=== PATIENT | female | born 1945 | race Caucasian/White ===

== ENCOUNTER 2022-12-08 17:40 | Inpatient (IN) | payer OTHER, MEDICARE ==
[~2022-12-08] VITALS: Ht 167.6 cm; Wt 108.9 kg
[2022-12-08 17:46] VITALS: BP_SYST 108
--- NOTE | 2022-12-08 18:38 | NUR ---
Placed in room 08 . Placed on personnel monitor, blood pressure machine and pulse oximeter. To gown for exam. Side rails up. Report given to EUGENE ASH.
--- NOTE | 2022-12-08 19:25 | NUR ---
REPORT GIVE TO KELSEA RN, PT STABLE, VSS
[2022-12-08] MEDS ORDERED: dilTIAZem HCL IVP 5 MG/ML VIAL IVP ONE ×2 (19:30→20:30)
--- NOTE | 2022-12-08 19:36 | NUR ---
COVID SWAB OBTAINED AND SENT TO LAB.
[2022-12-08 20:21] LABS: ANION GAP 5 (5-15); CALCIUM 8.5 mg/dL (8.4-11.0); CHLORIDE 101 mmol/L (98-107); CREATININE 1.63 mg/dL (0.55-1.30); GLUCOSE 343 mg/dL (70-99); HEMATOCRIT 45.6 % (36-48); HEMOGLOBIN 14.1 g/dL (12.0-16.0); MEAN CORPUSCULAR HEMOGLOBIN 29 pg (27-31); MEAN CORPUSCULAR HGB CONC 31 % (32-36); MEAN CORPUSCULAR VOLUME 92 fL (79.0-98.0); PLATELET COUNT (AUTO) 166 K/uL (130-430); RED BLOOD CELL COUNT(AUTO) 4.95 MIL/uL (4.2-6.2); RED CELL DISTRIBUTION WIDTH 17.2 % (9.0-15.0); UREA NITROGEN, BLOOD 74 mg/dL (8-21)
[2022-12-08 20:27] LABS: WHITE BLOOD COUNT (AUTO) 26.4 K/uL (4.8-10.8)
[2022-12-08 20:34] LABS: ALANINE AMINOTRANSFERASE 135 U/L (12-78); ASPARTATE AMINOTRANSFERASE 77 U/L (10-37); TOTAL BILIRUBIN 0.5 mg/dL (0.0-1.0)
[2022-12-08 20:39] LABS: BAND % (MANUAL) 0 % (0-6); BASOPHILS % (MANUAL) 0 % (0-2); EOSINOPHILS % (MANUAL) 0 % (0-7); LYMPHOCYTES % (MANUAL) 6 % (20-46); MONOCYTES % (MANUAL) 5 % (0-11)
[2022-12-08 20:48] LABS: INR 1.2 (0.8-1.2); PROTHROMBIN TIME 12.4 SECS (9.5-12.5)
--- NOTE | 2022-12-08 20:50 | NUR ---
Cardizem 10 mg given IVP as ordered; pt connected to monitor.
[2022-12-08] MEDS ORDERED: cefTRIAXone 1 GM in D5W 50 ML IV ONE (21:15)
--- NOTE | 2022-12-08 21:15 | NUR ---
MRSA SAMPLE COLLECTED AND SENT TO LAB
[2022-12-08 21:29] LABS: BILIRUBIN,URINE NEGATIVE (NEGATIVE); BLOOD, URINE 1+ (NEGATIVE); CLARITY/URINE SL CLOUDY (CLEAR); COLOR,URINE YELLOW (YELLOW); GLUCOSE,URINE TRACE (NEGATIVE); KETONES,URINE NEGATIVE (NEGATIVE); LEUKOCYTE ESTERASE ,URINE 2+ (NEGATIVE); NITRITE, URINE NEGATIVE (NEGATIVE); PH,URINE 5.5 (5.0-8.0); PROTEIN URINE TRACE (NEGATIVE); UROBILINOGEN,URINE 0.2 (0.2-1.0)
[2022-12-08] MEDS ORDERED: cefTRIAXone 1 GM VIAL ONE (21:36)
[2022-12-08] MEDS ORDERED: NAPR-1172 PO (21:48)
[2022-12-08 21:50] LABS: BACTERIA,URINE MODERATE /HPF (None Seen); WBC,URINE >100 /HPF (0-3); YEAST,URINE Many /HPF (None Seen)
[2022-12-08 21:52] LABS: COARSE GRANULAR CASTS,URINE 0-10 /LPF (None Seen); FINE GRANULAR CASTS,URINE 0-10 /LPF (None Seen); MUCUS,URINE 1+ /LPF (None Seen)
--- NOTE | 2022-12-08 22:05 | NUR ---
Pt started on Cardizem 125 mg in D5W starting rate at 10 mg/hr as ordered; connected to monitor; VS being monitored. To titrate as needed to maintain HR <110.
[2022-12-08] MEDS ORDERED: D5/0.45 NS 1,000 ML IV SCH (23:00)
--- NOTE | 2022-12-08 23:13 | NUR ---
Admit bed requested Patient will be admitted to care of . Admitted to ICU unit. Diagnosis : PNA/AFIB RVR Inpatient (Yes or No) Y Observation (Yes or No) N Orientation concerns or request close to nursing station (Yes or No) N Covid Status : NEG From Home (Yes or if No enter name of facility) Med Rec Completed (Yes of No) PENDING FROM FAMILY
[2022-12-08 23:56] VITALS: BP_SYST 124
--- NOTE | 2022-12-08 23:58 | NUR ---
MD Gongora at bedside examining pt.
[2022-12-09] VITALS (13 sets, daily range): BP systolic 93–137
[2022-12-09] MEDS ORDERED: SPIRIVA INH (00:29)
[2022-12-09] MEDS ORDERED: CYM30 PO (00:29)
[2022-12-09] MEDS ORDERED: METO25TA6 PO (00:29)
[2022-12-09] MEDS ORDERED: APIX5TAB PO (00:29)
[2022-12-09] MEDS ORDERED: PYRI50CA PO (00:29)
[2022-12-09] MEDS ORDERED: INSU100V55 SUBCUT (00:29)
[2022-12-09] MEDS ORDERED: INSU100V53 SUBCUT (00:29)
[2022-12-09] MEDS ORDERED: FLUT15.842 NS (00:29)
[2022-12-09] MEDS ORDERED: LIP40 PO (00:29)
[2022-12-09] MEDS ORDERED: VITD400 PO (00:29)
[2022-12-09] MEDS ORDERED: DOCU-144 PO (00:29)
[2022-12-09] MEDS ORDERED: MOM PO (00:29)
[2022-12-09] MEDS ORDERED: THIA50TA10 PO (00:29)
[2022-12-09] MEDS ORDERED: ICOS1CAP PO (00:29)
[2022-12-09] MEDS ORDERED: LEVO750T64 PO (00:29)
[2022-12-09] MEDS ORDERED: LORA10TA7 PO (00:29)
[2022-12-09] MEDS ORDERED: TROS60CA3 PO (00:29)
[2022-12-09] MEDS ORDERED: METH1TAB35 PO (00:29)
[2022-12-09] MEDS ORDERED: INSU200I SQ (00:29)
[2022-12-09] MEDS ORDERED: VITA400T9 PO (00:29)
[2022-12-09] MEDS ORDERED: PRIM50TA27 PO (00:29)
[2022-12-09] MEDS ORDERED: GUAI100S14 PO (00:29)
[2022-12-09] MEDS ORDERED: METH4TAB17 PO (00:29)
[2022-12-09] MEDS ORDERED: FERROUS SULFATE PO (00:29)
[2022-12-09] MEDS ORDERED: CLON0.5T4 PO (00:29)
[2022-12-09] MEDS ORDERED: ACET325T PO (00:29)
[2022-12-09] MEDS ORDERED: PREG75CA PO (00:29)
[2022-12-09] MEDS ORDERED: VIBE75TA PO (00:29)
[2022-12-09] MEDS ORDERED: SEMA1PEN3 SUBCUT (00:29)
[2022-12-09] MEDS ORDERED: ACETAMINOPHEN 325 MG TABLET PO PRN (00:45)
--- NOTE | 2022-12-09 01:32 | NUR ---
Pt continue on Cardizem drip at 10 mg/hr. HR remains <110. MD Levineium aware.
[2022-12-09] MEDS: LevALBUTEROL HCL 1.25 MG/0.5 ML *CONC.* VIAL.NEB (XOPENEX CONC.) INH SCH ×5 (02:10→19:27)
[2022-12-09] MEDS: 0.45% NACL 1,000 ML IV SCH ×3 (02:11→20:22)
[2022-12-09] MEDS ORDERED: FLUT16SP16 NS (06:38)
--- NOTE | 2022-12-09 07:18 | NUR ---
Pt care endorsed to EUGENE Alvarenga for continuity of care. Questions/Concerns asnwered.
[2022-12-09] MEDS: IPRATROPIUM BROM 0.5 MG/2.5 ML VIAL.NEB (ATROVENT) INH SCH ×4 (07:36→19:28)
[2022-12-09] MEDS ORDERED: NON-FORMULARY MEDICATION (Methenamine Hippurate 1 TAB) PO SCH (09:00)
[2022-12-09] MEDS ORDERED: TIOTROPIUM BROMIDE 18 mcg/INHALATION (CAPSULE) INH SCH (09:00)
[2022-12-09] MEDS ORDERED: AZITHROMYCIN 500 MG in NS 250 ML IV SCH (09:00)
[2022-12-09] MEDS ORDERED: NON-FORMULARY MEDICATION (Vibegron (Gemtesa) 1 TAB) PO SCH (09:00)
[2022-12-09] MEDS ORDERED: methylPREDNISolone 4 MG TABLET PO SCH (09:00)
[2022-12-09] MEDS ORDERED: TROSPIUM CHLORIDE 60 MG PO SCH (09:00)
[2022-12-09] MEDS ORDERED: ENOXAPARIN SODIUM 30 MG/0.3 ML SYRINGE SUBCUT SCH (09:00)
[2022-12-09] MEDS ORDERED: AZITHROMYCIN 500 MG/VIAL (ZITHROMAX) IV ONE (09:16)
[2022-12-09] MEDS: DOCUSATE SODIUM 100 MG CAPSULE PO SCH (09:22)
[2022-12-09] MEDS: LORATADINE 10 MG TABLET PO SCH (09:22)
[2022-12-09] MEDS: FLUTICASONE PROPIONATE 50 mCg/SPRAY 16 GM NS SCH (09:23)
[2022-12-09] MEDS: METOPROLOL TARTRATE 25 MG TABLET PO SCH ×2 (09:24→20:23)
[2022-12-09] MEDS: PYRIDOXINE HCL 50 MG TABLET PO SCH (09:25)
[2022-12-09] MEDS: VITAMIN E 400 UNIT CAPSULE PO SCH (09:25)
--- NOTE | 2022-12-09 10:19 | NUR ---
report given to amina rn, patient transported to icu 6
[2022-12-09] MEDS: DULoxetine HCL 30 MG CAPSULE.DR (CYMBALTA) PO SCH (11:25)
[2022-12-09] MEDS: FERROUS SULFATE 325 MG TABLET.DR PO SCH (11:25)
--- NOTE | 2022-12-09 11:25 | NUR ---
Spoke with Lindy requesting orders from Dr. Gongora regarding new admission.
[2022-12-09] MEDS: PRIMIDONE 50 MG TABLET PO SCH ×2 (11:26→20:24)
[2022-12-09] MEDS: THIAMINE HCL 100 MG TABLET PO SCH (11:26)
[2022-12-09] MEDS: APIXABAN 2.5 MG TABLET PO SCH ×2 (11:29→20:23)
[2022-12-09] MEDS: INSULIN REGULAR, HUMAN 100 UNITS/ML, 3 ML VIAL (humuLIN R) SUBCUT PRN ×3 (12:33→20:30)
[2022-12-09] MEDS ORDERED: DILTIAZEM HCL 30 MG TABLET PO ONE (14:30)
--- NOTE | 2022-12-09 15:40 | NUR ---
RT NOTES Despite HHN tx, pt cont. to have increased work of breathing, pt also complained of SOB. While waiting for dr's callback, 1610 placed pt on bipap 10/28, titrated FIO2 to 80% to achieve 92% sat.
--- NOTE | 2022-12-09 16:26 | NUR ---
Spoke with Moris at Dr. Rodriguez's office requesting new consult for SOB BIPAP
--- NOTE | 2022-12-09 16:57 | NUR ---
RT NOTES Per Dr Mcgee's order, bipap to AVAP 18 Vt 450. ABG to be draw 2 hours after change, will endorse to NOC Rt.
[2022-12-09] MEDS ORDERED: FUROSEMIDE 20 MG/2 ML VIAL IVP ONE (17:45)
[2022-12-09] MEDS ORDERED: DILTIAZEM HCL 30 MG TABLET PO SCH (18:00)
[2022-12-09] MEDS: METHYLPREDNISOLONE SOD SUCC 40 MG/ML VIAL IVP SCH ×2 (18:22→23:18)
[2022-12-09] MEDS: PIPERACILLIN/TAZO 2.25G/DEX-IS 50 ML IV SCH ×2 (18:22→23:18)
[2022-12-09] MEDS ORDERED: INSULIN REGULAR, HUMAN 10 UNITS/0.1 ML, 3 ML VIAL IVP ONE (18:30)
--- NOTE | 2022-12-09 18:44 | NUR ---
HIGH ALERT NOTE: Called Dr. HAINES back at identified within the medical roster to verify physician authenticity. BLOOD GLUCOSE 494, DR HAINES ORDERED TO GIVE IVP 10U REGULAR INSULIN AND SQ 12U PER SLIDING SCALE. READ BACK VERIFIED.
--- NOTE | 2022-12-09 18:54 | NUR ---
PT REFUSED TO PROVIDE SPUTUM SAMPLE DURING SHIFT.
--- NOTE | 2022-12-09 19:01 | NUR ---
ACCUCHECK 423. BEDSIDE RN MADE AWARE.
[2022-12-09] MEDS: ATORVASTATIN 20 MG TABLET PO SCH (20:23)
[2022-12-09] MEDS: PREGABALIN 75 MG CAPSULE (LYRICA) PO SCH (20:24)
[2022-12-09] MEDS ORDERED: cefTRIAXone 1 GM IVPB PREMIX 50 ML IV SCH ×2 (21:00)
[2022-12-09] MEDS: INSULIN GLARGINE 100 UNITS/ML, 10 ML VIAL SUBCUT SCH (21:06)
[2022-12-10] VITALS (24 sets, daily range): BP systolic 103–151
[2022-12-10] MEDS: METHYLPREDNISOLONE SOD SUCC 40 MG/ML VIAL IVP SCH ×3 (05:57→17:53)
[2022-12-10] MEDS: PIPERACILLIN/TAZO 2.25G/DEX-IS 50 ML IV SCH ×3 (06:02→17:52)
[2022-12-10] MEDS: INSULIN REGULAR, HUMAN 100 UNITS/ML, 3 ML VIAL (humuLIN R) SUBCUT PRN ×4 (06:03→21:29)
[2022-12-10 06:46] LABS: BASOPHILS % (AUTO) 0.2 % (0.0-2.0); LYMPHOCYTES # (AUTO) 0.3 K/uL (1.0-5.5); LYMPHOCYTES % (AUTO) 2.2 % (20.5-51.5); MEAN CORPUSCULAR HEMOGLOBIN 29 pg (27-31); MEAN CORPUSCULAR HGB CONC 32 % (32-36); MEAN CORPUSCULAR VOLUME 93 fL (79.0-98.0); MONOCYTES # (AUTO) 0.3 K/uL (0.0-1.0); MONOCYTES % (AUTO) 2.3 % (1.7-9.3); NEUTROPHILS # (AUTO) 14.5 K/uL (1.8-7.7); NEUTROPHILS % (AUTO) 95.3 % (40.0-70.0); PLATELET COUNT (AUTO) 114 K/uL (130-430); RED BLOOD CELL COUNT(AUTO) 4.43 MIL/uL (4.2-6.2); RED CELL DISTRIBUTION WIDTH 17.1 % (9.0-15.0); WHITE BLOOD COUNT (AUTO) 15.2 K/uL (4.8-10.8)
[2022-12-10] MEDS: IPRATROPIUM BROM 0.5 MG/2.5 ML VIAL.NEB (ATROVENT) INH SCH ×4 (07:11→19:51)
[2022-12-10] MEDS: LevALBUTEROL HCL 1.25 MG/0.5 ML *CONC.* VIAL.NEB (XOPENEX CONC.) INH SCH ×4 (07:12→19:51)
[2022-12-10 07:40] LABS: ANION GAP 8 (5-15); CALCIUM 8.4 mg/dL (8.4-11.0); CHLORIDE 97 mmol/L (98-107); GLUCOSE 393 mg/dL (70-99); UREA NITROGEN, BLOOD 85 mg/dL (8-21)
--- NOTE | 2022-12-10 08:00 | NUR ---
PATIENT IN BED, ON BIPAP 80%, CARDIZEM DRIP RUNNING 10MG/HR, LEFT WRIST 22G, R FOREARM 22G INTACT PATENT. SPOKE WITH NOE THE RN PATIENT ADVOCATE AND JILLIAN THE SON AND NOTIFIED THAT PATIENT IS ON BIPAP AND EDUCATED ON PATIENT STATUS. DISCUSSED IF PATIENT WERE TO NEED INTUBATION WHAT THAT WOULD LOOK LIKE AND JILLIAN STATED THAT HE WOULD WANT TO KEEP HER FULL CODE AND INTUBATE IF STATUS WORSENED. MARTÍNEZ DRAINING CLEAR YELLOW URINE. SKIN INTACT. SAFETY MEASURES IN PLACE.
[2022-12-10] MEDS: PRIMIDONE 50 MG TABLET PO SCH ×2 (09:00→20:16)
[2022-12-10] MEDS: APIXABAN 2.5 MG TABLET PO SCH ×2 (09:00→20:13)
[2022-12-10] MEDS: VITAMIN E 400 UNIT CAPSULE PO SCH (09:00)
[2022-12-10] MEDS: THIAMINE HCL 100 MG TABLET PO SCH (09:00)
[2022-12-10] MEDS: METOPROLOL TARTRATE 25 MG TABLET PO SCH (09:00)
[2022-12-10] MEDS: DULoxetine HCL 30 MG CAPSULE.DR (CYMBALTA) PO SCH (09:00)
[2022-12-10] MEDS: LORATADINE 10 MG TABLET PO SCH (09:00)
[2022-12-10] MEDS: DOCUSATE SODIUM 100 MG CAPSULE PO SCH (09:00)
[2022-12-10] MEDS: FERROUS SULFATE 325 MG TABLET.DR PO SCH (09:00)
[2022-12-10] MEDS: PYRIDOXINE HCL 50 MG TABLET PO SCH (09:00)
[2022-12-10] MEDS: FLUTICASONE PROPIONATE 50 mCg/SPRAY 16 GM NS SCH (09:00)
[2022-12-10] MEDS: INSULIN GLARGINE 100 UNITS/ML, 10 ML VIAL SUBCUT SCH ×2 (09:31→21:27)
[2022-12-10] MEDS: AZITHROMYCIN 500 MG in NS 250 ML IV SCH (09:32)
--- NOTE | 2022-12-10 10:04 | NUR ---
NOTIFIED DR HAINES THAT PATIENT IS ON BIPAP, ORDERED TO HOLD PO MEDICATION AT THIS TIME.
--- NOTE | 2022-12-10 10:16 | NUR ---
SPOKE WITH SULEMA AT [facility] OFFICE REQUESTING ORDERS FROM DR. VILLA
--- NOTE | 2022-12-10 11:17 | NUR ---
Spoke with Judy requesting orders from Dr. Rodriguez
--- NOTE | 2022-12-10 11:39 | NUR ---
NOTIFIED DR VILLA OF PREVIOUS ABG AT 1900. DR VILLA ORDERED ANOTHER ABG, TAKEN AND PROVIDED RESULTS TO DR VILLA. NO CHANGE IN ORDERS, CONTINUE ON BIPAP.
--- NOTE | 2022-12-10 12:10 | NUR ---
RT NOTES Dr Andres boateng, stated that pt is responding to current AVAPs settings, will keep on all day, IF needs a break pt is to be placed on HFNC for very short time only.
[2022-12-10] MEDS: FLUCONAZOLE 200 mg/ NS 100 ML IV SCH (12:59)
[2022-12-10] MEDS ORDERED: METOPROLOL TARTRATE 5 MG/5 ML VIAL IVP ONE (13:00)
--- NOTE | 2022-12-10 13:24 | NUR ---
RAY NICHOLAS ROUNDED ON PATIENT, UPDATED ON PATIENT STATUS, NO CHANGE IN ORDERS AT THIS TIME. PT BOWEL MOVEMENT, FULL LINEN CHANGED. Addendum: 12/10/22 at 1325 by Grazyna Mack RN RN ORDERED IVP METOPROLOL
--- NOTE | 2022-12-10 14:15 | NUR ---
Wound Evaluation: Wound Consult ordered for Low Kirit Score. Patient evaluated for a low Kirit score of 15. Patient was lethargic, non-verbal, non-responsive to verbal commands, on Bi-Pap, and received in a Amara Bed. Patient needs to be turned in bed. Skin integrity: 1. Left Lower Abdomen: Healed wound, present on admission. Site has two small areas of scar tissue with dark discolored skin surrounding. No odor, no drainage. Per nurse report, the facility said that these have been non-healing wounds and to watch site. Recommend: [place] site with Betadine daily. No dressing needed. Continue to monitor site daily. 2. 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 Site has 100% black tissue. No odor, no drainage. Dry, stable. Wound measures 3.3 cm x 1.0 cm. Recommend: [place] site with Betadine daily. Cover site with foam dressing. Continue to monitor site daily with peel and peak technique. Change foam dressing q3days and prn for dressing soiling or dislodgment. 3. Left Posterior Heel: Blanchable redness. 4. Right Posterior Heel: Blanchable redness. Recommend: Elevate, offload and float bilateral heels with one pillow lengthwise under extremity at all times. Also recommend: Reposition patient every 2 hours with pillow support. Elevate, off-load and float bilateral heels with pillows. Offload pressure areas with pillows for pressure re-distribution. Perform skin care and monitor skin integrity Q shift. Use moisture barrier cream on moisture susceptible areas QID and PRN for soiling. Place patient on a low air-loss mattress.
--- NOTE | 2022-12-10 16:55 | NUR ---
Dietitian Recommendations * Continue Mechanical soft diet * If/when patient off bipap: consider Cardiac, Consistent CHO restriction Please refer to nutrition assessment for details, thanks! Shanda Courtney MPH, RDN
--- NOTE | 2022-12-10 19:45 | NUR ---
PM SHIFT ASSESSMENT PT AWAKE AND ALERT, TOLERATING CURRENT BIPAP SETTINGS. AFIB ON THE MONITOR. IVF INFUSING TO PIV. SKIN WARM AND DRY. FAMILY AT BEDSIDE. SAFETY PRECAUTIONS IN PLACE, CALL LIGHT WITHIN REACH. WILL CONTINUE TO MONITOR.
[2022-12-10] MEDS: PREGABALIN 75 MG CAPSULE (LYRICA) PO SCH (20:13)
[2022-12-10] MEDS ORDERED: METOPROLOL TARTRATE 5 MG/5 ML VIAL IVP SCH (21:00)
[2022-12-10] MEDS: ATORVASTATIN 20 MG TABLET PO SCH (21:00)
[2022-12-11] VITALS (25 sets, daily range): BP systolic 97–144
[2022-12-11] MEDS: METHYLPREDNISOLONE SOD SUCC 40 MG/ML VIAL IVP SCH ×4 (00:33→17:16)
[2022-12-11] MEDS: PIPERACILLIN/TAZO 2.25G/DEX-IS 50 ML IV SCH ×4 (00:33→17:17)
[2022-12-11] MEDS: INSULIN REGULAR, HUMAN 100 UNITS/ML, 3 ML VIAL (humuLIN R) SUBCUT PRN ×4 (06:00→21:29)
[2022-12-11 06:51] LABS: BASOPHILS % (AUTO) 0.1 % (0.0-2.0); HEMATOCRIT 35.6 % (36-48); HEMOGLOBIN 11.3 g/dL (12.0-16.0); LYMPHOCYTES # (AUTO) 0.2 K/uL (1.0-5.5); LYMPHOCYTES % (AUTO) 1.9 % (20.5-51.5); MEAN CORPUSCULAR HEMOGLOBIN 29 pg (27-31); MEAN CORPUSCULAR HGB CONC 32 % (32-36); MEAN CORPUSCULAR VOLUME 91 fL (79.0-98.0); MONOCYTES # (AUTO) 0.4 K/uL (0.0-1.0); MONOCYTES % (AUTO) 3.1 % (1.7-9.3); NEUTROPHILS # (AUTO) 12.4 K/uL (1.8-7.7); NEUTROPHILS % (AUTO) 94.9 % (40.0-70.0); PLATELET COUNT (AUTO) 105 K/uL (130-430); RED BLOOD CELL COUNT(AUTO) 3.92 MIL/uL (4.2-6.2); RED CELL DISTRIBUTION WIDTH 16.9 % (9.0-15.0)
[2022-12-11] MEDS: 0.45% NACL 1,000 ML IV SCH ×2 (07:03→21:32)
[2022-12-11] MEDS: LevALBUTEROL HCL 1.25 MG/0.5 ML *CONC.* VIAL.NEB (XOPENEX CONC.) INH SCH ×4 (07:13→19:35)
[2022-12-11] MEDS: IPRATROPIUM BROM 0.5 MG/2.5 ML VIAL.NEB (ATROVENT) INH SCH ×4 (07:13→19:35)
--- NOTE | 2022-12-11 07:16 | NUR ---
ENDORSEMENT PATIENT CARE ENDORSED TO LENY KNIGHT.
[2022-12-11 07:23] LABS: ALANINE AMINOTRANSFERASE 91 U/L (12-78); ALBUMIN 1.5 g/dL (3.4-4.8); ANION GAP 6 (5-15); ASPARTATE AMINOTRANSFERASE 45 U/L (10-37); CALCIUM 8.3 mg/dL (8.4-11.0); CHLORIDE 102 mmol/L (98-107); CREATININE 1.47 mg/dL (0.55-1.30); GLUCOSE 329 mg/dL (70-99); TOTAL BILIRUBIN 0.4 mg/dL (0.0-1.0); UREA NITROGEN, BLOOD 78 mg/dL (8-21)
--- NOTE | 2022-12-11 08:00 | NUR ---
PATIENT IN BED, ON BIPAP 70%, CARDIZEM DRIP RUNNING 15MG/HR, LEFT WRIST 22G, R FOREARM 22G INTACT PATENT. MARTÍNEZ DRAINING CLEAR YELLOW URINE. SKIN INTACT. SAFETY MEASURES IN PLACE. PT IS ALERT. SAFETY MEASURES IN PLACE. ORAL CARE PROVIDED.
[2022-12-11] MEDS: PRIMIDONE 50 MG TABLET PO SCH ×2 (09:14→21:31)
[2022-12-11] MEDS: VITAMIN E 400 UNIT CAPSULE PO SCH (09:15)
[2022-12-11] MEDS: FLUTICASONE PROPIONATE 50 mCg/SPRAY 16 GM NS SCH (09:15)
[2022-12-11] MEDS: PYRIDOXINE HCL 50 MG TABLET PO SCH (09:15)
[2022-12-11] MEDS: AZITHROMYCIN 500 MG in NS 250 ML IV SCH (09:17)
[2022-12-11] MEDS: DOCUSATE SODIUM 100 MG CAPSULE PO SCH (09:18)
[2022-12-11] MEDS: DULoxetine HCL 30 MG CAPSULE.DR (CYMBALTA) PO SCH (09:18)
[2022-12-11] MEDS: FERROUS SULFATE 325 MG TABLET.DR PO SCH (09:18)
[2022-12-11] MEDS: THIAMINE HCL 100 MG TABLET PO SCH (09:18)
[2022-12-11] MEDS: LORATADINE 10 MG TABLET PO SCH (09:18)
[2022-12-11] MEDS: APIXABAN 2.5 MG TABLET PO SCH ×2 (09:18→21:30)
--- NOTE | 2022-12-11 09:29 | NUR ---
RT NOTES 0929 PER MD HOLLEY, IF ABG THIS AM IS GOOD. TRY TITRATE O2 ON HFNC/OXYMIZER. PLACED PT ON 9L OXYMIZER- 92% SATURATION. WILL CONT TO MONITOR PT. EUGENE BENTLEY AWARE.
[2022-12-11] MEDS: INSULIN GLARGINE 100 UNITS/ML, 10 ML VIAL SUBCUT SCH ×2 (10:40→21:31)
[2022-12-11] MEDS ORDERED: METOPROLOL SUCCINATE 25 MG TAB.SR.24H (TOPROL XL) PO ONE (12:00)
[2022-12-11] MEDS ORDERED: FUROSEMIDE 20 MG/2 ML VIAL IVP ONE (12:00)
--- NOTE | 2022-12-11 13:30 | NUR ---
rt notes 1330 EUGENE Webb increased o2 flow to 13L oxymizer. Pt was only saturating 88%. Pt doesnt seem to be having WOB. will cont to monitor pt.
[2022-12-11] MEDS: FLUCONAZOLE 200 mg/ NS 100 ML IV SCH (14:36)
--- NOTE | 2022-12-11 15:40 | NUR ---
rt notes 7210 EUGENE Webb titrated oxymizer to 11L, pt was saturating 94%. MD Rodriguez rounded - per pt okay to be offloaded from bipap during day as tolerated, and BIPAP at noc + as needed. will cont to monitor pt.
--- NOTE | 2022-12-11 19:03 | NUR ---
SPOKE WITH NOE THE RN PT ADVOCATE AND TAYOMaddison SCHWARTZGUPTA THE PATIENT'S SON AND POWER OF FIXED CAPITAL CLERK. THEY ORDERED TO HAVE NO VISITORS UNLESS THEY PROVIDE THE PASSWORD "CHACKO". BENTLEY ARE VISITING AT THIS TIME WITH PATIENT'S SERVICE DOG. THEY WERE ASKED TO LEAVE RESPECTING CHANGE OF SHIFT HOURS. NEURORADIOLOGIST ORDER.
--- NOTE | 2022-12-11 20:35 | NUR ---
"Patient awake alert verbally indicative on 02 OXYMIZER 10 LPM 02 SAT 96 % skin dry warm assist for position change no SOB noted HOB elevated |chest movement symmetrical also unlabored / ."
--- NOTE | 2022-12-11 20:39 | NUR ---
Friends TWO Visitors @ the bedside talking with patient / . Addendum: 12/11/22 at 2043 by Antonio Hou RN They did provide the PASSWORD / .
[2022-12-11] MEDS: ATORVASTATIN 20 MG TABLET PO SCH (21:31)
[2022-12-11] MEDS: PREGABALIN 75 MG CAPSULE (LYRICA) PO SCH (21:32)
[2022-12-12] VITALS (36 sets, daily range): BP systolic 102–174
[2022-12-12] MEDS: PIPERACILLIN/TAZO 2.25G/DEX-IS 50 ML IV SCH ×5 (00:03→23:36)
[2022-12-12] MEDS: METHYLPREDNISOLONE SOD SUCC 40 MG/ML VIAL IVP SCH ×5 (00:04→23:37)
--- NOTE | 2022-12-12 00:23 | NUR ---
patient placed on Bi Pap and tolerating HOB elevated Respirations Regular and unlabored / .
--- NOTE | 2022-12-12 02:44 | NUR ---
Patient Resting on Bipap machine no alarming noted 02 SAT 95 % hob ELEVATED skin remains dry warm to touch position change tolerated / .
[2022-12-12] MEDS: INSULIN REGULAR, HUMAN 100 UNITS/ML, 3 ML VIAL (humuLIN R) SUBCUT PRN ×4 (06:00→20:35)
[2022-12-12] MEDS: LevALBUTEROL HCL 1.25 MG/0.5 ML *CONC.* VIAL.NEB (XOPENEX CONC.) INH SCH ×4 (07:10→19:46)
[2022-12-12] MEDS: IPRATROPIUM BROM 0.5 MG/2.5 ML VIAL.NEB (ATROVENT) INH SCH ×4 (07:10→19:45)
[2022-12-12] MEDS: DULoxetine HCL 30 MG CAPSULE.DR (CYMBALTA) PO SCH (09:34)
[2022-12-12] MEDS: THIAMINE HCL 100 MG TABLET PO SCH (09:34)
[2022-12-12] MEDS: PYRIDOXINE HCL 50 MG TABLET PO SCH (09:34)
[2022-12-12] MEDS: VITAMIN E 400 UNIT CAPSULE PO SCH (09:34)
[2022-12-12] MEDS: PRIMIDONE 50 MG TABLET PO SCH ×2 (09:35→20:07)
[2022-12-12] MEDS: APIXABAN 2.5 MG TABLET PO SCH ×2 (09:36→20:09)
[2022-12-12] MEDS: DOCUSATE SODIUM 100 MG CAPSULE PO SCH (09:36)
[2022-12-12] MEDS: LORATADINE 10 MG TABLET PO SCH (09:37)
[2022-12-12] MEDS: FERROUS SULFATE 325 MG TABLET.DR PO SCH (09:37)
[2022-12-12] MEDS: METOPROLOL SUCCINATE 25 MG TAB.SR.24H (TOPROL XL) PO SCH (09:37)
[2022-12-12] MEDS: AZITHROMYCIN 500 MG in NS 250 ML IV SCH (09:39)
[2022-12-12] MEDS: FLUTICASONE PROPIONATE 50 mCg/SPRAY 16 GM NS SCH (09:40)
[2022-12-12] MEDS: INSULIN GLARGINE 100 UNITS/ML, 10 ML VIAL SUBCUT SCH ×2 (09:53→20:36)
--- NOTE | 2022-12-12 10:07 | NUR ---
Report received at bedside 0705 pt resting, VS stable, pt on BIPAP 70% pt has a casie Pt woke up @0810 respiratory notified pt transitioned to Oxymizer 10L accucheck done breakfast given pt tolerates well Pt AAOx3 wants to speak with her son Rajan\states his # is [phone]
--- NOTE | 2022-12-12 11:13 | NUR ---
BG 411 PAGED PRIMARY FOR SLIDING SCALE - AWAITING CALL BACK
--- NOTE | 2022-12-12 11:27 | NUR ---
12 UNITS INSULIN GIVEN AWAITING CALL BACK PER SLIDING SCALE
--- NOTE | 2022-12-12 12:04 | NUR ---
PT FAMILY AT BEDSIDE SISTER (JASON + MANA ()
[2022-12-12] MEDS: 0.45% NACL 1,000 ML IV SCH ×2 (12:31→20:12)
[2022-12-12] MEDS: FLUCONAZOLE 200 mg/ NS 100 ML IV SCH (12:36)
--- NOTE | 2022-12-12 16:15 | NUR ---
PT REQUESTING TO SPEAK WITH ADVOCATE NOE. CONTACTED SON TO GET NUMBER. [phone]
--- NOTE | 2022-12-12 17:23 | NUR ---
Nutrition F/U: Admitting Diagnosis: Pneumonia, atrial fibrillation, RVR Reviewed Pertinent Medical/Surgical Hx Medical Record; Pateint Medical History Comment: Per EMR: 77y female with PMHx HTN, chronic afib, CHF, sleep apnea who presented to ED c/o SOB w/tachycardia and ALOC. After assessment, patient found with pneumonia and UTI. Patient admitted to the ICU on 12/08; Pateint tolerating off bipap 12/11 Subjective Information: RD rounded to ICU and s/w patient at bedside. Patient was seen eating lunch tray, no longer on bipap but with nasal cannula in place. Pt reports enjoying the foods shes been receiving on her trays, specifically the melon and pancakes in the am. 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 Patient reports her appetite as "okay today" and denies N/V/D/C. Per EMR, patient noted wtih LBM 12/12 x 1 and a soft, non-distended abdomen. Pateint endorses feeling comfortable with DM diet/cardiac diet education, no questions/concerns at this time. Patient would benefit from dietary restrictions now that she is off bipap during the day. Current Diet Order/Nutrition Support: Mechanical Soft x 4 days Patient/Significant Other Able To Verbalize Education Provided Not Indicated Pertinent Medications: Azithromycin, Lantus, Lipitor, solumedrol, piper/tazo, SSI, FeSO4, VIT E, MVI/B-complex, Eliquis, Colace, NS @ 60mL/hr NEW* Pertinent Labs: (12/11) BUN 78 H, Cre 1.47 H, BG 329 H, POC BG 304-394H Height (Feet) 5 feet Height (Inches) 6.00 inches Weight (Pounds) 249 lbs/ 112.9kg --- per EMR 12/10 239 lbs/ 109kg --- per EMR 12/12: 10 lb weight change likely cause by error Patient Weight 112.945 kg Body Mass Index 40.18 kg/m2 [place]/Adjusted Body Weight 130lbs/ 59kg GI Last BM Dec 11, 2022 x 2; No GI symptoms per patient 12/12 Food Allergies None Usual Diet At Home Diabetic, per pt 12/12 Current % PO None documented 12/12 Skin Integrity Comment: Kirit Score 16; Documented edema (12/12): BLE +2 pitting, BUE +1 pitting Per Wound RN note on 12/10: L low abdomen healed wound; L heel chronic wound (DM ulcer vs pressure ulcer?); BL heels w/ blanchable redness Estimated Energy Expenditure (kcals/day) 4704-5438 (25-30 kcal/kg IBW for CHF, BMI >40) Estimated Protein Required (g/day) 60-70 (1-1.2 g/kg IBW for CHF, BMI >40) Estimated Fluid Required (l/day) Per physician d/t CHF Problem/Etiology/Signs/Symptoms * Inadequate oral intake r/t bipap a/e/b no documented PO intake since admit, RN reports patient not eating well (On-going) Expected Outcomes/Goals PO intake provides >85% estimated nutritional needs, skin integrity/wt maintenance, nutrition-related labs WNL, normal GI function w/BM q 1-3 days Dietitian Recommendations * Ordered: Cardiac, Consistent CHO diet * Nursing, please document PO intake in EMR Follow Up Moderate Risk: F/U in 3-5 days
--- NOTE | 2022-12-12 17:23 | NUR ---
Dietitian Recommendations * Ordered: Cardiac, Consistent CHO diet * Nursing, please document PO intake in EMR Please refer to nutrition f/u for details, thanks! Shanda Courtney MPH, RDN
--- NOTE | 2022-12-12 19:15 | NUR ---
change of shift.pt.presents quiescent affect.pt.presents o2 therapy via oximizer rate;10l/min:02-sat%=92%.pt.presents iv access location lt.forearm.iv fluids/drip;cardizem infusing:rate:5mg/hr=5ml/hr.pt.presents jason cath intact.call light w/in access of the pt.
--- NOTE | 2022-12-12 19:46 | NUR ---
PT SON (X2) WAS AT THE BEDSIDE EARLIER, SPOKE WITH PT, SHE GAVE THEM HER CREDIT CARDS FOR SAFE KEEPING -
--- NOTE | 2022-12-12 19:47 | NUR ---
PT HAD A SMALL BM TODAY (SOFT, BROWN, FORMED)
--- NOTE | 2022-12-12 19:47 | NUR ---
REPORT GIVEN TO ONCOMING RN, PT STABLE CARDIZEM @5MG/HR 1/2 NS @ 60 ml/hr
--- NOTE | 2022-12-12 19:57 | NUR ---
spoke with RAY Teran orders Low Sodium/Carb controlled diet Fluid restriction 1000 daily decrease rate of 1/2 NS from 60ml to 40 ml/hr
--- NOTE | 2022-12-12 20:00 | NUR ---
pt.assessed.v/s assessed values wnl.02-sat%=93%.iv access intact;iv fluids/drip;cardizem infusing.jason cath intact. no c/o pain,nausea.pt.assessed for cleanliness.pt.repositioned.call light placed w/in access of the pt.
[2022-12-12] MEDS: ATORVASTATIN 20 MG TABLET PO SCH (20:07)
[2022-12-12] MEDS: PREGABALIN 75 MG CAPSULE (LYRICA) PO SCH (20:07)
--- NOTE | 2022-12-12 20:30 | NUR ---
blood glucose assessed value;589md/dl.md.kadhium richardson.
--- NOTE | 2022-12-12 21:00 | NUR ---
2100p medications administered.pt.capable to ingest the po medications w/out difficulty.insulin;regular:12-u administered per sliding scale.
--- NOTE | 2022-12-12 21:12 | NUR ---
Nutrition Note: Previous RD diet order changed to 2gNA + fluid restriction. Cardiac diet includes 2gNa restriction. Patient BG continues to elevate (now >500), she requires CCHO restriction. Please consider previous RD diet recommendations: * Consistent CHO (60g), Cardiac (2gNa, low cholesterol, low fat), Mechanical Soft diet
--- NOTE | 2022-12-12 22:00 | NUR ---
pt.assessed.v/s assessed values wnl note h/r status.o2-sat%=92%. present.assessed the pt.pt.requested medication;pain. ordered tylenol:650mg po q-6hrs/prn;pain.iv access intact iv fluids/drip;cardizem infusing. jason cath intact;patent.pt.assessed for cleanliness.pt,repositioned.call light placed w/in access of the pt.
[2022-12-12] MEDS ORDERED: ACETAMINOPHEN 325 MG TABLET PO PRN (22:30)
[2022-12-13] VITALS (20 sets, daily range): BP systolic 96–146
--- NOTE | 2022-12-13 | NUR ---
pt.assessed.v/s assessed values wnl.note h/r.o2-sat%=92%.picc-line intact iv fluids/drip:cardizem infusing.jason cath intact. per flacc pain mgx pt.absent facial grimaces/body posturing.pt.assessed for cleanliness.pt.repositioned.bi-pap applied.call light placed w/in access of the pt.
--- NOTE | 2022-12-13 02:00 | NUR ---
pt.assessed.v/s assessed values wnl.note h/r.02-sat%=96%.iv access intact iv fluids/drip;cardizem infusing.per flacc pain mgx pt.absent facial grimaces/body posturing.pt.assessed for cleanliness.pt.repositioned.call light placed w/in access of the pt.
--- NOTE | 2022-12-13 04:00 | NUR ---
pt.assessed.v/s assessed values note h/r status.02-sat%=92%.iv access intact;iv fluids/drip;cardizem infusing.jason cath intact. per flacc pain mgx pt.absent facial grimaces/body posturing.pt.assessed for cleanliness.pt.repositioned.call light place w/in access of the pt.
[2022-12-13] MEDS: METHYLPREDNISOLONE SOD SUCC 40 MG/ML VIAL IVP SCH ×4 (05:07→23:26)
[2022-12-13] MEDS: PIPERACILLIN/TAZO 2.25G/DEX-IS 50 ML IV SCH ×4 (05:07→22:50)
--- NOTE | 2022-12-13 06:00 | NUR ---
pt.assessed.v/s assessed values wnl.note h/r status.blood glucose assessed value;407mg/dl. ordered 15-u regular insulin.no c/o pain,nausea.iv access intact iv fluids/drip;cardizem infusing.pt.assessed for cleanliness.pt.cleaned/repositioned. call light placed w/in access of the pt.
[2022-12-13] MEDS: INSULIN REGULAR, HUMAN 100 UNITS/ML, 3 ML VIAL (humuLIN R) SUBCUT PRN ×3 (06:40→17:50)
--- NOTE | 2022-12-13 07:20 | NUR ---
report received at bedside, pt resting on bipap @ 70 pt debit card at bedside awaiting Son to come and collect pt has not been able to cough up sputum for collection x 2 days - cup at bedside will continue to monitor
[2022-12-13] MEDS: LevALBUTEROL HCL 1.25 MG/0.5 ML *CONC.* VIAL.NEB (XOPENEX CONC.) INH SCH ×4 (07:26→20:46)
[2022-12-13] MEDS: IPRATROPIUM BROM 0.5 MG/2.5 ML VIAL.NEB (ATROVENT) INH SCH ×4 (07:26→20:35)
--- NOTE | 2022-12-13 08:04 | NUR ---
RT NOTES Per order, pt off of BIPAP and placed on 11L oxymizer. Pt is awake, responds to simple questions. will monitor pt.
--- NOTE | 2022-12-13 09:08 | NUR ---
RT NOTES Pt cont. to tolerate 11L oxymizer. No distress noted. Pt. is alert.
[2022-12-13] MEDS: AZITHROMYCIN 500 MG in NS 250 ML IV SCH (09:16)
[2022-12-13] MEDS: VITAMIN E 400 UNIT CAPSULE PO SCH (09:17)
[2022-12-13] MEDS: PRIMIDONE 50 MG TABLET PO SCH ×2 (09:17→20:13)
[2022-12-13] MEDS: FLUTICASONE PROPIONATE 50 mCg/SPRAY 16 GM NS SCH (09:19)
[2022-12-13] MEDS: THIAMINE HCL 100 MG TABLET PO SCH (09:19)
[2022-12-13] MEDS: METOPROLOL SUCCINATE 25 MG TAB.SR.24H (TOPROL XL) PO SCH (09:19)
[2022-12-13] MEDS: FERROUS SULFATE 325 MG TABLET.DR PO SCH (09:19)
[2022-12-13] MEDS: DULoxetine HCL 30 MG CAPSULE.DR (CYMBALTA) PO SCH (09:20)
[2022-12-13] MEDS: DOCUSATE SODIUM 100 MG CAPSULE PO SCH (09:20)
[2022-12-13] MEDS: LORATADINE 10 MG TABLET PO SCH (09:20)
[2022-12-13] MEDS: OMEGA-3/DHA/EPA/FISH OIL 1 GM CAPSULE PO SCH ×2 (09:22→21:18)
[2022-12-13] MEDS: APIXABAN 2.5 MG TABLET PO SCH ×2 (09:23→20:12)
[2022-12-13] MEDS: INSULIN GLARGINE 100 UNITS/ML, 10 ML VIAL SUBCUT SCH ×2 (09:26→20:24)
[2022-12-13] MEDS: PYRIDOXINE HCL 50 MG TABLET PO SCH (09:42)
--- NOTE | 2022-12-13 10:09 | NUR ---
Nutrition Consult RD received Nutrition Consult (diabetic; age; kcal requirements; immobile) 12/13/22 3116. Pt was seen and assessed by Shanda Courtney, MPH, RD yesterday -- please refer to Nutrition F/U for details. This RD agrees w/ recommendation for CCHO, Cardiac, Mechanical Soft diet for this pt, w/ addition of FR 1000 as per current physician order. Pt will continue to be seen as per nutrition care standards.
[2022-12-13] MEDS: FLUCONAZOLE 200 mg/ NS 100 ML IV SCH (12:08)
--- NOTE | 2022-12-13 15:54 | NUR ---
RT NOTES Pt. cont. to tolerate cpap. No distress noted. H.R 71 R.R 19 spont vt 384.
--- NOTE | 2022-12-13 16:07 | NUR ---
SPOKE WITH MICHELLE REGARDING ORDER FROM DR. Pamela GOLD.
[2022-12-13] MEDS: DILTIAZEM HCL 30 MG TABLET PO SCH ×2 (17:47→23:27)
[2022-12-13] MEDS: ATORVASTATIN 20 MG TABLET PO SCH (20:11)
[2022-12-13] MEDS: PREGABALIN 75 MG CAPSULE (LYRICA) PO SCH (20:12)
[2022-12-13] MEDS: 0.45% NACL 1,000 ML IV SCH (20:14)
--- NOTE | 2022-12-13 22:11 | NUR ---
rt notes. placed pt on bipap @2049. pt tolerating well. no resp. distress noted. will continue to monitor.
[2022-12-14] VITALS (15 sets, daily range): BP systolic 119–147
[2022-12-14] MEDS: METHYLPREDNISOLONE SOD SUCC 40 MG/ML VIAL IVP SCH ×3 (05:48→20:54)
[2022-12-14] MEDS: DILTIAZEM HCL 30 MG TABLET PO SCH ×3 (05:49→19:09)
[2022-12-14] MEDS: PIPERACILLIN/TAZO 2.25G/DEX-IS 50 ML IV SCH (05:50)
[2022-12-14 07:17] LABS: ANION GAP 4 (5-15); CALCIUM 8.6 mg/dL (8.4-11.0); CHLORIDE 102 mmol/L (98-107); CREATININE 1.45 mg/dL (0.55-1.30); GLUCOSE 326 mg/dL (70-99); UREA NITROGEN, BLOOD 88 mg/dL (8-21)
[2022-12-14] MEDS ORDERED: IPRATROPIUM BROM 0.5 MG/2.5 ML VIAL.NEB (ATROVENT) INH ONE (07:55)
[2022-12-14] MEDS: LevALBUTEROL HCL 1.25 MG/0.5 ML *CONC.* VIAL.NEB (XOPENEX CONC.) INH SCH ×3 (08:00→15:10)
[2022-12-14] MEDS: IPRATROPIUM BROM 0.5 MG/2.5 ML VIAL.NEB (ATROVENT) INH SCH ×3 (08:00→15:10)
[2022-12-14] MEDS ORDERED: LevALBUTEROL HCL 1.25 MG/0.5 ML *CONC.* VIAL.NEB (XOPENEX CONC.) INH ONE (08:02)
[2022-12-14] MEDS: DOCUSATE SODIUM 100 MG CAPSULE PO SCH (09:00)
[2022-12-14] MEDS: INSULIN GLARGINE 100 UNITS/ML, 10 ML VIAL SUBCUT SCH ×2 (09:13→20:27)
[2022-12-14] MEDS ORDERED: SODIUM POLYSTYRENE SULFONATE 15 GM/60 ML UDBTL PO ONE (09:30)
[2022-12-14] MEDS: LORATADINE 10 MG TABLET PO SCH (09:34)
[2022-12-14] MEDS: DULoxetine HCL 30 MG CAPSULE.DR (CYMBALTA) PO SCH (09:34)
[2022-12-14] MEDS: FERROUS SULFATE 325 MG TABLET.DR PO SCH (09:36)
[2022-12-14] MEDS: APIXABAN 2.5 MG TABLET PO SCH ×2 (09:36→21:08)
[2022-12-14] MEDS: OMEGA-3/DHA/EPA/FISH OIL 1 GM CAPSULE PO SCH ×2 (09:36→20:54)
[2022-12-14] MEDS: PRIMIDONE 50 MG TABLET PO SCH ×2 (09:37→20:56)
[2022-12-14] MEDS: PYRIDOXINE HCL 50 MG TABLET PO SCH (09:37)
[2022-12-14] MEDS: THIAMINE HCL 100 MG TABLET PO SCH (09:37)
[2022-12-14] MEDS: METOPROLOL SUCCINATE 25 MG TAB.SR.24H (TOPROL XL) PO SCH (09:37)
[2022-12-14] MEDS: VITAMIN E 400 UNIT CAPSULE PO SCH (09:38)
[2022-12-14] MEDS: FLUTICASONE PROPIONATE 50 mCg/SPRAY 16 GM NS SCH (09:39)
[2022-12-14 10:17] LABS: BASOPHILS % (AUTO) 0.2 % (0.0-2.0); HEMATOCRIT 36.7 % (36-48); HEMOGLOBIN 11.7 g/dL (12.0-16.0); LYMPHOCYTES # (AUTO) 0.2 K/uL (1.0-5.5); MEAN CORPUSCULAR HEMOGLOBIN 29 pg (27-31); MEAN CORPUSCULAR HGB CONC 32 % (32-36); MEAN CORPUSCULAR VOLUME 91 fL (79.0-98.0); MONOCYTES # (AUTO) 0.3 K/uL (0.0-1.0); MONOCYTES % (AUTO) 2.9 % (1.7-9.3); NEUTROPHILS % (AUTO) 94.9 % (40.0-70.0); PLATELET COUNT (AUTO) 94 K/uL (130-430); RED BLOOD CELL COUNT(AUTO) 4.04 MIL/uL (4.2-6.2); RED CELL DISTRIBUTION WIDTH 16.6 % (9.0-15.0)
[2022-12-14 10:20] LABS: WHITE BLOOD COUNT (AUTO) 9.5 K/uL (4.8-10.8)
[2022-12-14] MEDS: INSULIN REGULAR, HUMAN 100 UNITS/ML, 3 ML VIAL (humuLIN R) SUBCUT PRN ×3 (12:53→20:26)
[2022-12-14] MEDS: FLUCONAZOLE 200 mg/ NS 100 ML IV SCH (13:07)
--- NOTE | 2022-12-14 19:15 | NUR ---
change of shift.pt.presents affect;lethargic.pt.presents 02 therapy via oximizer.02-sat%=92%.pt.presents iv access x2 intact;patent iv fluids infusing.jason cath intact;patent.no c/o pain,nausea.call light placed w/in access of the pt.
--- NOTE | 2022-12-14 20:00 | NUR ---
pt.assessed.v/s assessed values note h/r status.o2 therapy administered via oximizer:rate;10l/min:02-sat%=92%.iv access intact x2.iv fluids infusing.jason cath intyact;patent.no c/o pain,nausea.pt.apprised snacks/beverages are available w/in the shift.fluids restriction re-iterated to pt:1000ml/24hrs.pt.assessed for cleanliness.pt.repositioned.call light placed w/in access of the pt.
--- NOTE | 2022-12-14 20:30 | NUR ---
blood glucose assessed value;418mg/dl.md.kadhium richardson.
[2022-12-14] MEDS: CEFEPIME 1 GM in D5W 50 ML IV SCH (20:53)
[2022-12-14] MEDS: ATORVASTATIN 20 MG TABLET PO SCH (20:54)
[2022-12-14] MEDS: PREGABALIN 75 MG CAPSULE (LYRICA) PO SCH (20:54)
--- NOTE | 2022-12-14 21:00 | NUR ---
2100p medications administered.pt.capable to ingest the po medications w/out difficulty.no c/o pain,nausea. call light placed w/in access of the pt. Addendum: 12/14/22 at 2226 by Tino Mancilla RN insulin;regular;15-u administered per sliding scale.lantus;15-u scheduled dose administered. returned the page. apprised of the blood glucose value. ordered. lantus;20-u bid.
[2022-12-14] MEDS: LACTOBACILLUS RHAMNOSUS GG 1 CAP CAPSULE PO SCH (21:16)
--- NOTE | 2022-12-14 22:00 | NUR ---
pt.assessed.v/s assessed values wnl note h/r rate.bi-pap applied:02-sat%=92%.no c/o pain,nausea.pt.assessed for cleanliness.pt.repositioned.iv access intact iv fluids infusing.call light placed w/in access of the pt.
[2022-12-15] VITALS (24 sets, daily range): BP systolic 112–145
--- NOTE | 2022-12-15 | NUR ---
pt.assessed.v/s assessed values note h/r status.cardizem;po administered schedule dose.02-thu%=92%.iv access intact ;patent.jason cath intact;patent.pt.stated pain.tylenol;650mg po administered.to assess the efficacy of the pain medication per protocol.pt.assessed for cleanliness.pt.repositioned.call light placed w/in access of the pt.
[2022-12-15] MEDS: DILTIAZEM HCL 30 MG TABLET PO SCH ×4 (00:14→18:02)
[2022-12-15] MEDS: ACETAMINOPHEN 325 MG TABLET PO PRN (00:15)
--- NOTE | 2022-12-15 02:00 | NUR ---
pt.assessed.v/s assessed values wnl note h/r.ett/ngt intact.oral care/suction attended to.02-sat%=92%.iv access intact; iv fluids infusing.jason cath intact;patent.per flacc pain mgx pt.absent facial grimaces/body posturing.pt.assessed for cleanliness.pt.repositioned pt.repositioned.call light placed w/in access of the pt.
--- NOTE | 2022-12-15 04:00 | NUR ---
pt.assessed.v/s assessed values wnl note h/r status.oral care/suction attended to.02-sat%=93%.iv access intact iv fluids infusing.jason cath intact;patent.no c/o pain,nausea.pt.assessed for cleanliness.pt.repositioned.call light placed w/in access of the pt.
[2022-12-15] MEDS: INSULIN REGULAR, HUMAN 100 UNITS/ML, 3 ML VIAL (humuLIN R) SUBCUT PRN ×3 (05:27→23:24)
--- NOTE | 2022-12-15 06:00 | NUR ---
pt.assessed.v/s assessed values note h/r.oral care/suction attended to.02-sat%=91%.IV ACcEsS IntaCT;patent.jason cath intact;patent.per flacc pain mgx pt.absent facial grimaces/body posturing.pt.assessed for cleanliness pt.repositioned.call light placed w/in access of the pt.
[2022-12-15 06:16] LABS: BASOPHILS % (AUTO) 0.1 % (0.0-2.0); HEMATOCRIT 36.9 % (36-48); HEMOGLOBIN 11.6 g/dL (12.0-16.0); LYMPHOCYTES # (AUTO) 0.2 K/uL (1.0-5.5); LYMPHOCYTES % (AUTO) 1.9 % (20.5-51.5); MEAN CORPUSCULAR HEMOGLOBIN 29 pg (27-31); MEAN CORPUSCULAR HGB CONC 32 % (32-36); MEAN CORPUSCULAR VOLUME 90 fL (79.0-98.0); MONOCYTES # (AUTO) 0.5 K/uL (0.0-1.0); MONOCYTES % (AUTO) 4.3 % (1.7-9.3); NEUTROPHILS # (AUTO) 11.4 K/uL (1.8-7.7); NEUTROPHILS % (AUTO) 93.7 % (40.0-70.0); PLATELET COUNT (AUTO) 107 K/uL (130-430); RED BLOOD CELL COUNT(AUTO) 4.09 MIL/uL (4.2-6.2); RED CELL DISTRIBUTION WIDTH 16.5 % (9.0-15.0); WHITE BLOOD COUNT (AUTO) 12.2 K/uL (4.8-10.8)
[2022-12-15 06:43] LABS: ALANINE AMINOTRANSFERASE 190 U/L (12-78); ALBUMIN 1.8 g/dL (3.4-4.8); ANION GAP 6 (5-15); ASPARTATE AMINOTRANSFERASE 83 U/L (10-37); CALCIUM 8.7 mg/dL (8.4-11.0); CHLORIDE 105 mmol/L (98-107); CREATININE 1.43 mg/dL (0.55-1.30); GLUCOSE 211 mg/dL (70-99); TOTAL BILIRUBIN 0.4 mg/dL (0.0-1.0); UREA NITROGEN, BLOOD 91 mg/dL (8-21)
[2022-12-15] MEDS: IPRATROPIUM BROM 0.5 MG/2.5 ML VIAL.NEB (ATROVENT) INH SCH ×5 (07:41→21:08)
[2022-12-15] MEDS: LevALBUTEROL HCL 1.25 MG/0.5 ML *CONC.* VIAL.NEB (XOPENEX CONC.) INH SCH ×5 (07:41→21:08)
[2022-12-15] MEDS: OMEGA-3/DHA/EPA/FISH OIL 1 GM CAPSULE PO SCH ×2 (08:40→21:00)
--- NOTE | 2022-12-15 08:40 | NUR ---
RT NOTES 0835 PT PLACED ON 12 L OXYMIZER FOR EATING. SAT 92%, RN AWARE, WILL CONT TO MONITOR. Addendum: 12/15/22 at 0841 by Alondra Sotomayor RT Amended: Links added.
[2022-12-15] MEDS: PYRIDOXINE HCL 50 MG TABLET PO SCH (08:41)
[2022-12-15] MEDS: VITAMIN E 400 UNIT CAPSULE PO SCH (08:41)
[2022-12-15] MEDS: FLUTICASONE PROPIONATE 50 mCg/SPRAY 16 GM NS SCH (08:41)
[2022-12-15] MEDS: THIAMINE HCL 100 MG TABLET PO SCH (08:52)
[2022-12-15] MEDS: CEFEPIME 1 GM in D5W 50 ML IV SCH ×2 (08:52→20:35)
[2022-12-15] MEDS: LACTOBACILLUS RHAMNOSUS GG 1 CAP CAPSULE PO SCH (08:52)
[2022-12-15] MEDS: METHYLPREDNISOLONE SOD SUCC 40 MG/ML VIAL IVP SCH ×2 (08:52→20:54)
[2022-12-15] MEDS: DULoxetine HCL 30 MG CAPSULE.DR (CYMBALTA) PO SCH (08:52)
[2022-12-15] MEDS: LORATADINE 10 MG TABLET PO SCH (08:53)
[2022-12-15] MEDS: METOPROLOL SUCCINATE 25 MG TAB.SR.24H (TOPROL XL) PO SCH (08:53)
[2022-12-15] MEDS: DOCUSATE SODIUM 100 MG CAPSULE PO SCH (08:53)
[2022-12-15] MEDS: PRIMIDONE 50 MG TABLET PO SCH ×2 (08:54→20:59)
[2022-12-15] MEDS: APIXABAN 2.5 MG TABLET PO SCH ×2 (08:54→20:57)
[2022-12-15] MEDS: FERROUS SULFATE 325 MG TABLET.DR PO SCH (08:54)
[2022-12-15] MEDS: INSULIN GLARGINE 100 UNITS/ML, 10 ML VIAL SUBCUT SCH ×2 (08:55→22:00)
--- NOTE | 2022-12-15 10:30 | NUR ---
1020 PT PLACED BACK ON AVAPS, WILL CONT TO MONITOR. Addendum: 12/15/22 at 1030 by Alondra Sotomayor RT Amended: Links added.
--- NOTE | 2022-12-15 11:23 | NUR ---
Nutrition F/U RD reviewed pts current EMR including diet hx, physician notes, nursing notes, pertinent labs/meds/procedures, care trends and care activity. Short note d/t high workload Subjective Information RD attended ICU round and s/w primary RN regarding pt condition. Pt is on Bi-pap at night and on oxymizer during the day on 12 L. He said she ate about 50% during breakfast but he had to encourage her. RN noted that she seemed extra sleepy today but was arousable. Per EMR review: BG levels are still high (211 and POC 347); BUN 91 H and Cre 1.43 H; pt abd firm and distended w/ hypoactive bowel sounds. Current Diet Order/Nutrition Support Cardiac, Standard CHO 60g, FR 1000mL, Mechanical soft x 2 days % PO intake Fair avg of 63% x 4 meals Last BM 12/15 x 1 Estimated Energy Expenditure (kcals/day) 9198-9862 (25-30 kcal/kg IBW for CHF, BMI >40) Estimated Protein Required (g/day) 60-70 (1-1.2 g/kg IBW for CHF, BMI >40) Estimated Fluid Required (l/day) 1000 mL or Per physician d/t CHF Problem/Etiology/Signs/Symptoms * Inadequate oral intake r/t bipap a/e/b no documented PO intake since admit, RN reports patient not eating well (On-going) Expected Outcomes/Goals PO intake provides >85% estimated nutritional needs, skin integrity/wt maintenance, nutrition-related labs WNL, normal GI function w/BM q 1-3 days Dietitian Recommendations * Continue Cardiac, Standard CHO 60g, FR 1000mL, Mechanical soft * Encourage pt to eat during mealtimes; 1:1 feeder may be helpful * Nursing, please continue to document PO intake in EMR Follow up Moderate risk: see pt in 3-5 days GS, MPH, RD
--- NOTE | 2022-12-15 11:24 | NUR ---
Dietitian Recommendations * Continue Cardiac, Standard CHO 60g, FR 1000mL, Mechanical soft * Encourage pt to eat during mealtimes; 1:1 feeder may be helpful * Nursing, please continue to document PO intake in EMR GS, MPH, RD Please refer to Nutrition F/U for further details. Thanks!
--- NOTE | 2022-12-15 12:30 | NUR ---
SPOKE TO MD VILLA, PULMONOLOGY FOR NEW ABG RESULTS. NO NEW ORDERS RECEIVED. PER MD, WANTS PATIENT ON BIPAP THROUGHOUT THE DAY TO LOWER CO2 LEVELS EXCEPT WHEN EATING AND TAKING PO MEDICATIONS. PT VSS. NAD NOTED. WILL CONT TO MONITOR PT.
--- NOTE | 2022-12-15 12:43 | NUR ---
SPOKE WITH KELSEA REQUESTING ORDERS FROM DR. VILLA.
[2022-12-15] MEDS: FLUCONAZOLE 200 mg/ NS 100 ML IV SCH (13:19)
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
--- NOTE | 2022-12-15 14:00 | NUR ---
PATIENT ADVOCATE NOE LEIVA, #[phone] Addendum: 12/15/22 at 1436 by [facility], EUGENE RN PATIENT ADVOCATE NOE LARA, #[phone]
--- NOTE | 2022-12-15 14:03 | NUR ---
RT NOTES 1400 PT PLACED BACK TO AVAPS, TOLERATING WELL. Addendum: 12/15/22 at 1405 by Alondra Sotomayor RT Amended: Links added.
--- NOTE | 2022-12-15 16:17 | NUR ---
Dr Rodriguez requested LTAC evaluation- Patient has a BPCI diagnosis-cannot be referred to LTAC-[facility].
[2022-12-15] MEDS ORDERED: NON-FORMULARY MEDICATION (Semaglutide (Ozempic) 1 MG) SUBCUT SCH (17:00)
[2022-12-15] MEDS: PREGABALIN 75 MG CAPSULE (LYRICA) PO SCH (20:54)
[2022-12-15] MEDS: ATORVASTATIN 20 MG TABLET PO SCH (20:57)
[2022-12-16] VITALS (23 sets, daily range): BP systolic 121–164
[2022-12-16] MEDS: DILTIAZEM HCL 30 MG TABLET PO SCH ×4 (00:20→17:33)
[2022-12-16 06:29] LABS: BASOPHILS # (AUTO) 0.1 K/uL (0.0-0.2); BASOPHILS % (AUTO) 0.5 % (0.0-2.0); EOSINOPHILS # (AUTO) 0.2 K/uL (0.0-0.4); EOSINOPHILS % (AUTO) 1.4 % (0.0-4.0); HEMATOCRIT 37.9 % (36-48); HEMOGLOBIN 12.1 g/dL (12.0-16.0); LYMPHOCYTES # (AUTO) 0.4 K/uL (1.0-5.5); LYMPHOCYTES % (AUTO) 3.1 % (20.5-51.5); MEAN CORPUSCULAR HEMOGLOBIN 29 pg (27-31); MEAN CORPUSCULAR HGB CONC 32 % (32-36); MEAN CORPUSCULAR VOLUME 91 fL (79.0-98.0); MONOCYTES # (AUTO) 0.4 K/uL (0.0-1.0); MONOCYTES % (AUTO) 2.6 % (1.7-9.3); NEUTROPHILS % (AUTO) 92.4 % (40.0-70.0); PLATELET COUNT (AUTO) 136 K/uL (130-430); RED BLOOD CELL COUNT(AUTO) 4.15 MIL/uL (4.2-6.2); RED CELL DISTRIBUTION WIDTH 16.7 % (9.0-15.0); WHITE BLOOD COUNT (AUTO) 14.1 K/uL (4.8-10.8)
--- NOTE | 2022-12-16 06:45 | NUR ---
Pt. awake, Ox3, denies pain . O2 O2 via oxymyzer w/ Y3Oym=67 to 98 % Afib on the scope in the 100 to 130s; given Cardizem as orederd. Cardiac and resp. monitoring cont. Needs met.
[2022-12-16] MEDS: LevALBUTEROL HCL 1.25 MG/0.5 ML *CONC.* VIAL.NEB (XOPENEX CONC.) INH SCH ×4 (07:03→19:43)
[2022-12-16] MEDS: IPRATROPIUM BROM 0.5 MG/2.5 ML VIAL.NEB (ATROVENT) INH SCH ×4 (07:04→19:43)
[2022-12-16 07:26] LABS: ALANINE AMINOTRANSFERASE 180 U/L (12-78); ALBUMIN 1.9 g/dL (3.4-4.8); ANION GAP 6 (5-15); ASPARTATE AMINOTRANSFERASE 71 U/L (10-37); CALCIUM 8.7 mg/dL (8.4-11.0); CHLORIDE 105 mmol/L (98-107); CREATININE 1.19 mg/dL (0.55-1.30); GLUCOSE 185 mg/dL (70-99); TOTAL BILIRUBIN 0.5 mg/dL (0.0-1.0); UREA NITROGEN, BLOOD 85 mg/dL (8-21)
[2022-12-16] MEDS: INSULIN REGULAR, HUMAN 100 UNITS/ML, 3 ML VIAL (humuLIN R) SUBCUT PRN ×3 (07:49→17:35)
--- NOTE | 2022-12-16 08:00 | NUR ---
PATIENT IN BED, NO SIGNS OR SYMPTOMS OF DISTRESS. A/OX3. INTERMITTENT CONFUSION, ELEVATED PCO2 LEVELS AND PER DR VILLA PATIENT IS TO BE ON BIPAP ALL NIGHT AND INTERMITTENTLY DURING THE DAY. ON OXYMIZER 12L. NS TKO TO LEFT WRIST 22G. R FOREARM 22G. MARTÍNEZ DRAINING CLEAR YELLOW URINE TO GRAVITY. A FIB WITH PO CARDIZEM ORDERED AND PO METOPROLOL. SKIN INTACT. EDEMA GENERALIZED. SAFETY MEASURES IN PLACE. HOMERO.
[2022-12-16] MEDS: FLUTICASONE PROPIONATE 50 mCg/SPRAY 16 GM NS SCH (09:11)
[2022-12-16] MEDS: CEFEPIME 1 GM in D5W 50 ML IV SCH ×2 (09:11→21:10)
[2022-12-16] MEDS: FERROUS SULFATE 325 MG TABLET.DR PO SCH (09:12)
[2022-12-16] MEDS: LORATADINE 10 MG TABLET PO SCH (09:12)
[2022-12-16] MEDS: DOCUSATE SODIUM 100 MG CAPSULE PO SCH (09:12)
[2022-12-16] MEDS: PYRIDOXINE HCL 50 MG TABLET PO SCH (09:12)
[2022-12-16] MEDS: THIAMINE HCL 100 MG TABLET PO SCH (09:12)
[2022-12-16] MEDS: OMEGA-3/DHA/EPA/FISH OIL 1 GM CAPSULE PO SCH ×2 (09:12→21:10)
[2022-12-16] MEDS: DULoxetine HCL 30 MG CAPSULE.DR (CYMBALTA) PO SCH (09:12)
[2022-12-16] MEDS: LACTOBACILLUS RHAMNOSUS GG 1 CAP CAPSULE PO SCH (09:12)
[2022-12-16] MEDS: METHYLPREDNISOLONE SOD SUCC 40 MG/ML VIAL IVP SCH ×2 (09:20→21:10)
[2022-12-16] MEDS: METOPROLOL SUCCINATE 25 MG TAB.SR.24H (TOPROL XL) PO SCH (09:20)
[2022-12-16] MEDS: PRIMIDONE 50 MG TABLET PO SCH ×2 (09:20→21:10)
[2022-12-16] MEDS: VITAMIN E 400 UNIT CAPSULE PO SCH (09:21)
[2022-12-16] MEDS: INSULIN GLARGINE 100 UNITS/ML, 10 ML VIAL SUBCUT SCH ×2 (09:24→21:11)
[2022-12-16] MEDS: APIXABAN 2.5 MG TABLET PO SCH ×2 (09:24→21:11)
--- NOTE | 2022-12-16 11:00 | NUR ---
DR VILLA ROUNDED ON PATIENT, ORDERED TO HAVE PATIENT ON BIPAP ALL NIGHT AND INTERMITTENTLY DURING THE DAY. ORDERED TO DO ABG LATER IN THE DAY AFTER PATIENT HAS BEEN ON BIPAP FOR 2HR. RT MADE AWARE.
--- NOTE | 2022-12-16 11:54 | NUR ---
patient placed on bipap
[2022-12-16] MEDS: FLUCONAZOLE 200 mg/ NS 100 ML IV SCH (13:07)
--- NOTE | 2022-12-16 17:47 | NUR ---
rt notes 1730 took pt off avaps, on oxymizer sat 98% rn aware. Addendum: 12/16/22 at 1748 by Alondra Sotomayor RT Amended: Links added.
--- NOTE | 2022-12-16 18:54 | NUR ---
ENDORSED CONTINUATION OF CARE TO [facility] DIRECTOR OF MECHANICAL ENGINEERING RN.
[2022-12-16] MEDS: ATORVASTATIN 20 MG TABLET PO SCH (21:10)
[2022-12-16] MEDS: PREGABALIN 75 MG CAPSULE (LYRICA) PO SCH (21:10)
[2022-12-17] VITALS (24 sets, daily range): BP systolic 114–173
[2022-12-17] MEDS: DILTIAZEM HCL 30 MG TABLET PO SCH ×4 (00:15→18:18)
[2022-12-17 05:41] LABS: HEMATOCRIT 36.6 % (36-48); HEMOGLOBIN 11.8 g/dL (12.0-16.0); LYMPHOCYTES # (AUTO) 0.3 K/uL (1.0-5.5); LYMPHOCYTES % (AUTO) 2.9 % (20.5-51.5); MEAN CORPUSCULAR HEMOGLOBIN 29 pg (27-31); MEAN CORPUSCULAR HGB CONC 32 % (32-36); MEAN CORPUSCULAR VOLUME 91 fL (79.0-98.0); MONOCYTES # (AUTO) 0.4 K/uL (0.0-1.0); MONOCYTES % (AUTO) 3.3 % (1.7-9.3); NEUTROPHILS # (AUTO) 10.2 K/uL (1.8-7.7); NEUTROPHILS % (AUTO) 93.8 % (40.0-70.0); PLATELET COUNT (AUTO) 83 K/uL (130-430); RED BLOOD CELL COUNT(AUTO) 4.04 MIL/uL (4.2-6.2); RED CELL DISTRIBUTION WIDTH 16.9 % (9.0-15.0); WHITE BLOOD COUNT (AUTO) 10.9 K/uL (4.8-10.8)
[2022-12-17 06:06] LABS: ALANINE AMINOTRANSFERASE 166 U/L (12-78); ALBUMIN 1.8 g/dL (3.4-4.8); ANION GAP 6 (5-15); ASPARTATE AMINOTRANSFERASE 66 U/L (10-37); CALCIUM 8.6 mg/dL (8.4-11.0); CHLORIDE 103 mmol/L (98-107); CREATININE 1.14 mg/dL (0.55-1.30); GLUCOSE 276 mg/dL (70-99); TOTAL BILIRUBIN 0.5 mg/dL (0.0-1.0); UREA NITROGEN, BLOOD 87 mg/dL (8-21)
[2022-12-17] MEDS: INSULIN REGULAR, HUMAN 100 UNITS/ML, 3 ML VIAL (humuLIN R) SUBCUT PRN ×4 (06:35→21:06)
[2022-12-17] MEDS: IPRATROPIUM BROM 0.5 MG/2.5 ML VIAL.NEB (ATROVENT) INH SCH ×4 (07:11→19:41)
[2022-12-17] MEDS: LevALBUTEROL HCL 1.25 MG/0.5 ML *CONC.* VIAL.NEB (XOPENEX CONC.) INH SCH ×4 (07:12→19:41)
--- NOTE | 2022-12-17 08:00 | NUR ---
PATIENT IN BED, NO SIGNS OR SYMPTOMS OF DISTRESS. A/OX3. INTERMITTENT CONFUSION, ELEVATED PCO2 LEVELS AND PER DR VILLA PATIENT IS TO BE ON BIPAP ALL NIGHT AND INTERMITTENTLY DURING THE DAY. ON OXYMIZER 10L. NS TKO TO LEFT WRIST 22G. R FOREARM 22G. MARTÍNEZ DRAINING CLEAR YELLOW URINE TO GRAVITY. A FIB WITH PO CARDIZEM ORDERED AND PO METOPROLOL. NOTIFIED DR JANEEN Pitt THAT PATIENT HEART RATE REPEATEDLY REACHED THE 130S AND 140S YESTERDAY AND HE STATED THAT HE WILL ADJUST METOPROLOL DOSING. SKIN INTACT. EDEMA GENERALIZED. SAFETY MEASURES IN PLACE. PERRLA.
[2022-12-17] MEDS: APIXABAN 2.5 MG TABLET PO SCH ×2 (09:00→21:07)
[2022-12-17] MEDS ORDERED: SODIUM POLYSTYRENE SULFONATE 15 GM/60 ML UDBTL PO ONE (09:15)
[2022-12-17] MEDS ORDERED: METOPROLOL SUCCINATE 25 MG TAB.SR.24H (TOPROL XL) PO ONE (10:00)
[2022-12-17] MEDS: INSULIN GLARGINE 100 UNITS/ML, 10 ML VIAL SUBCUT SCH ×2 (10:04→21:06)
[2022-12-17] MEDS: CEFEPIME 1 GM in D5W 50 ML IV SCH ×2 (10:05→21:10)
[2022-12-17] MEDS: DULoxetine HCL 30 MG CAPSULE.DR (CYMBALTA) PO SCH (10:06)
[2022-12-17] MEDS: LACTOBACILLUS RHAMNOSUS GG 1 CAP CAPSULE PO SCH (10:06)
[2022-12-17] MEDS: FERROUS SULFATE 325 MG TABLET.DR PO SCH (10:06)
[2022-12-17] MEDS: LORATADINE 10 MG TABLET PO SCH (10:06)
[2022-12-17] MEDS: METOPROLOL SUCCINATE 25 MG TAB.SR.24H (TOPROL XL) PO SCH (10:06)
[2022-12-17] MEDS: PRIMIDONE 50 MG TABLET PO SCH ×2 (10:06→20:47)
[2022-12-17] MEDS: PYRIDOXINE HCL 50 MG TABLET PO SCH (10:06)
[2022-12-17] MEDS: VITAMIN E 400 UNIT CAPSULE PO SCH (10:07)
[2022-12-17] MEDS: FLUTICASONE PROPIONATE 50 mCg/SPRAY 16 GM NS SCH (10:07)
[2022-12-17] MEDS: DOCUSATE SODIUM 100 MG CAPSULE PO SCH (10:07)
[2022-12-17] MEDS: THIAMINE HCL 100 MG TABLET PO SCH (10:07)
[2022-12-17] MEDS: OMEGA-3/DHA/EPA/FISH OIL 1 GM CAPSULE PO SCH ×2 (10:15→20:46)
[2022-12-17] MEDS: METHYLPREDNISOLONE SOD SUCC 40 MG/ML VIAL IVP SCH ×2 (10:15→20:46)
--- NOTE | 2022-12-17 10:56 | NUR ---
DR CARTAGENA ROUNDED ON PATIENT, NO CHANGE IN ORDERS AT THIS TIME.
[2022-12-17] MEDS: FLUCONAZOLE 200 mg/ NS 100 ML IV SCH (13:54)
--- NOTE | 2022-12-17 16:30 | NUR ---
RT NOTES For a possible unit downgrade & lower FIO2, placed pt on HFNC 25L 50%, pt sat 92-94%. No distress noted.
--- NOTE | 2022-12-17 19:30 | NUR ---
Pt report received. Pt AAOx3, O2 at 25 LMP/HFNC at 50% FiO2. PIV Left wrist and RFA patent and secure, good blood return. NS at KVO to RFA, no s/s infiltration. F/C patent and secure draining clear and yellow urine. Pt denies c/o pain or discomfort and no needs verbalized at this time. VSS, NAD.
--- NOTE | 2022-12-17 20:00 | NUR ---
Oral care and sips of water provided.
[2022-12-17] MEDS: ATORVASTATIN 20 MG TABLET PO SCH (21:10)
[2022-12-17] MEDS: PREGABALIN 75 MG CAPSULE (LYRICA) PO SCH (21:11)
--- NOTE | 2022-12-17 23:10 | NUR ---
Pt placed on BiPAP per RT. AVAPS, 18, 450, 50%, 5.
[2022-12-18] VITALS (24 sets, daily range): BP systolic 104–153
--- NOTE | 2022-12-18 00:26 | NUR ---
Pt had a large sticky brown BM. Pt cleaned, protective foam dsg changed to sacrum, clean linens and gown applied. CHG bath given. Pt tolerated well.
[2022-12-18] MEDS: DILTIAZEM HCL 30 MG TABLET PO SCH ×4 (01:50→17:26)
[2022-12-18 06:19] LABS: BASOPHILS % (AUTO) 0.3 % (0.0-2.0); EOSINOPHILS % (AUTO) 0.2 % (0.0-4.0); HEMATOCRIT 36.1 % (36-48); HEMOGLOBIN 11.6 g/dL (12.0-16.0); LYMPHOCYTES # (AUTO) 0.4 K/uL (1.0-5.5); LYMPHOCYTES % (AUTO) 3.3 % (20.5-51.5); MEAN CORPUSCULAR HEMOGLOBIN 29 pg (27-31); MEAN CORPUSCULAR HGB CONC 32 % (32-36); MEAN CORPUSCULAR VOLUME 89 fL (79.0-98.0); MONOCYTES # (AUTO) 0.5 K/uL (0.0-1.0); NEUTROPHILS # (AUTO) 10.6 K/uL (1.8-7.7); NEUTROPHILS % (AUTO) 92.2 % (40.0-70.0); PLATELET COUNT (AUTO) 78 K/uL (130-430); RED BLOOD CELL COUNT(AUTO) 4.05 MIL/uL (4.2-6.2); RED CELL DISTRIBUTION WIDTH 17.1 % (9.0-15.0); WHITE BLOOD COUNT (AUTO) 11.4 K/uL (4.8-10.8)
[2022-12-18 07:08] LABS: ALANINE AMINOTRANSFERASE 162 U/L (12-78); ALBUMIN 1.8 g/dL (3.4-4.8); ANION GAP 4 (5-15); ASPARTATE AMINOTRANSFERASE 67 U/L (10-37); CALCIUM 8.4 mg/dL (8.4-11.0); CHLORIDE 104 mmol/L (98-107); CREATININE 0.89 mg/dL (0.55-1.30); GLUCOSE 136 mg/dL (70-99); TOTAL BILIRUBIN 0.6 mg/dL (0.0-1.0); UREA NITROGEN, BLOOD 67 mg/dL (8-21)
--- NOTE | 2022-12-18 07:15 | NUR ---
Pt report given to oncoming RN. Pt resting quietly with eyes closed, pt tolerating BiPAP well with no changes in settings this shift. F/C patent and secure. LUCIA KIM.
[2022-12-18] MEDS: IPRATROPIUM BROM 0.5 MG/2.5 ML VIAL.NEB (ATROVENT) INH SCH ×4 (07:31→19:30)
[2022-12-18] MEDS: LevALBUTEROL HCL 1.25 MG/0.5 ML *CONC.* VIAL.NEB (XOPENEX CONC.) INH SCH ×4 (07:31→19:30)
--- NOTE | 2022-12-18 07:47 | NUR ---
PATIENT IN BED, NO SIGNS OR SYMPTOMS OF DISTRESS. A/OX3. PATIENT ON BIPAP ALL NIGHT CURRENT SETTINGS 16R, TV450, EPAP 6, FIO2 50%. NS TKO TO RIGHT WRIST 22G. LEFT WRIST 22G. DRESSINGS CLEAN DRY INTACT. MARTÍNEZ DRAINING CLEAR YELLOW URINE TO GRAVITY. A FIB WITH PO CARDIZEM ORDERED AND PO METOPROLOL. SKIN INTACT. EDEMA GENERALIZED. SAFETY MEASURES IN PLACE. HOMERO.
--- NOTE | 2022-12-18 08:15 | NUR ---
RT NOTES Pt is awake, placed on 30L 40% HFNC. will monitor pt.
--- NOTE | 2022-12-18 08:28 | NUR ---
RT NOTES Sat 89%, increased FIO2 to 50% flow to 25L, sat improved 92-94%
--- NOTE | 2022-12-18 08:29 | NUR ---
RT ATTEMPTED PATIENT ON HIGH FLOW 30L 45% BUT SATURATION DID NOT SUSTAIN OVER 92% SO NOW IS ON 25L 45%.
[2022-12-18] MEDS ORDERED: METOPROLOL SUCCINATE 25 MG TAB.SR.24H (TOPROL XL) PO SCH (09:00)
[2022-12-18] MEDS: APIXABAN 2.5 MG TABLET PO SCH ×2 (09:00→21:06)
[2022-12-18] MEDS: CEFEPIME 1 GM in D5W 50 ML IV SCH ×2 (09:13→20:57)
[2022-12-18] MEDS: INSULIN GLARGINE 100 UNITS/ML, 10 ML VIAL SUBCUT SCH ×2 (09:13→21:07)
[2022-12-18] MEDS: DULoxetine HCL 30 MG CAPSULE.DR (CYMBALTA) PO SCH (09:14)
[2022-12-18] MEDS: VITAMIN E 400 UNIT CAPSULE PO SCH (09:14)
[2022-12-18] MEDS: METHYLPREDNISOLONE SOD SUCC 40 MG/ML VIAL IVP SCH ×2 (09:14→20:57)
[2022-12-18] MEDS: LORATADINE 10 MG TABLET PO SCH (09:14)
[2022-12-18] MEDS: PYRIDOXINE HCL 50 MG TABLET PO SCH (09:14)
[2022-12-18] MEDS: DOCUSATE SODIUM 100 MG CAPSULE PO SCH (09:14)
[2022-12-18] MEDS: OMEGA-3/DHA/EPA/FISH OIL 1 GM CAPSULE PO SCH ×2 (09:14→20:57)
[2022-12-18] MEDS: LACTOBACILLUS RHAMNOSUS GG 1 CAP CAPSULE PO SCH (09:14)
[2022-12-18] MEDS: THIAMINE HCL 100 MG TABLET PO SCH (09:14)
[2022-12-18] MEDS: METOPROLOL SUCCINATE 25 MG TAB.SR.24H (TOPROL XL) PO SCH (09:15)
[2022-12-18] MEDS: PRIMIDONE 50 MG TABLET PO SCH ×2 (09:15→20:58)
[2022-12-18] MEDS: FERROUS SULFATE 325 MG TABLET.DR PO SCH (09:15)
[2022-12-18] MEDS: FLUTICASONE PROPIONATE 50 mCg/SPRAY 16 GM NS SCH (09:16)
--- NOTE | 2022-12-18 11:22 | NUR ---
RT NOTES will try 20L 48% FIO2, will monitor for desaturation
[2022-12-18] MEDS: FLUCONAZOLE 200 mg/ NS 100 ML IV SCH (12:22)
[2022-12-18] MEDS: INSULIN REGULAR, HUMAN 100 UNITS/ML, 3 ML VIAL (humuLIN R) SUBCUT PRN ×3 (12:25→21:22)
--- NOTE | 2022-12-18 13:41 | NUR ---
RT NOTES FIO2 TO 55% due to low sat 89%
--- NOTE | 2022-12-18 15:56 | NUR ---
RT NOTES FIO2 TO 0.50
[2022-12-18] MEDS ORDERED: PROMETHAZINE-DM 6.25 MG-15 MG/5 ML UDC PO PRN (16:00)
[2022-12-18] MEDS: PREGABALIN 75 MG CAPSULE (LYRICA) PO SCH (20:57)
[2022-12-18] MEDS: ATORVASTATIN 20 MG TABLET PO SCH (20:57)
[2022-12-19] VITALS (23 sets, daily range): BP systolic 107–146
[2022-12-19] MEDS: DILTIAZEM HCL 30 MG TABLET PO SCH ×5 (00:04→23:50)
[2022-12-19 05:54] LABS: BASOPHILS % (AUTO) 0.3 % (0.0-2.0); EOSINOPHILS # (AUTO) 0.1 K/uL (0.0-0.4); EOSINOPHILS % (AUTO) 1.1 % (0.0-4.0); HEMATOCRIT 35.4 % (36-48); HEMOGLOBIN 11.3 g/dL (12.0-16.0); LYMPHOCYTES # (AUTO) 0.3 K/uL (1.0-5.5); LYMPHOCYTES % (AUTO) 2.9 % (20.5-51.5); MEAN CORPUSCULAR HEMOGLOBIN 29 pg (27-31); MEAN CORPUSCULAR HGB CONC 32 % (32-36); MEAN CORPUSCULAR VOLUME 90 fL (79.0-98.0); MONOCYTES # (AUTO) 0.5 K/uL (0.0-1.0); MONOCYTES % (AUTO) 4.7 % (1.7-9.3); NEUTROPHILS # (AUTO) 10.2 K/uL (1.8-7.7); PLATELET COUNT (AUTO) 88 K/uL (130-430); RED BLOOD CELL COUNT(AUTO) 3.94 MIL/uL (4.2-6.2); RED CELL DISTRIBUTION WIDTH 16.7 % (9.0-15.0); WHITE BLOOD COUNT (AUTO) 11.2 K/uL (4.8-10.8)
[2022-12-19 06:18] LABS: ALANINE AMINOTRANSFERASE 196 U/L (12-78); ALBUMIN 1.7 g/dL (3.4-4.8); ANION GAP 4 (5-15); ASPARTATE AMINOTRANSFERASE 92 U/L (10-37); CALCIUM 8.3 mg/dL (8.4-11.0); CHLORIDE 103 mmol/L (98-107); CREATININE 0.98 mg/dL (0.55-1.30); GLUCOSE 304 mg/dL (70-99); TOTAL BILIRUBIN 0.6 mg/dL (0.0-1.0); UREA NITROGEN, BLOOD 67 mg/dL (8-21)
--- NOTE | 2022-12-19 07:00 | NUR ---
OPEN NOTE: Received report from the mini shifter nurse. 77-year-old female with long history of diabetes mellitus, hypertension, and chronic atrial fibrillation, presented to the Emergency Room with shortness of breath, tachycardia, altered level of consciousness. The patient has been on po Levaquin for pneumonia recently. Currently she shows RVR with A fib. Pt with jason catheter cloudy output, bilateral hand discoloration, DTI left heel upon admission, left wrist iv 22g, right forearm iv 22g with NS @5ml/hr. Pt @ high flow nasal cannula running at 45%, 20L. AVPAP at night @18rt, 450v, 5peep, and 40%. Per family request there is a password for any visitors or callers wants to see or connect with pt has to provide. Pt in bed comfortable.
[2022-12-19] MEDS: IPRATROPIUM BROM 0.5 MG/2.5 ML VIAL.NEB (ATROVENT) INH SCH ×4 (07:09→19:35)
[2022-12-19] MEDS: LevALBUTEROL HCL 1.25 MG/0.5 ML *CONC.* VIAL.NEB (XOPENEX CONC.) INH SCH ×4 (07:09→19:34)
--- NOTE | 2022-12-19 07:30 | NUR ---
RT NOTES Flow to 15L. Rn notified
--- NOTE | 2022-12-19 07:30 | NUR ---
RT @ bed side, flow will be decrease to 15%.
[2022-12-19] MEDS: APIXABAN 2.5 MG TABLET PO SCH ×2 (08:57→20:47)
[2022-12-19] MEDS: METOPROLOL SUCCINATE 25 MG TAB.SR.24H (TOPROL XL) PO SCH (08:59)
[2022-12-19] MEDS: METHYLPREDNISOLONE SOD SUCC 40 MG/ML VIAL IVP SCH ×2 (08:59→20:37)
[2022-12-19] MEDS: FERROUS SULFATE 325 MG TABLET.DR PO SCH (09:00)
[2022-12-19] MEDS: DULoxetine HCL 30 MG CAPSULE.DR (CYMBALTA) PO SCH (09:00)
[2022-12-19] MEDS: PRIMIDONE 50 MG TABLET PO SCH ×2 (09:00→20:41)
[2022-12-19] MEDS: LACTOBACILLUS RHAMNOSUS GG 1 CAP CAPSULE PO SCH (09:00)
[2022-12-19] MEDS: DOCUSATE SODIUM 100 MG CAPSULE PO SCH (09:00)
[2022-12-19] MEDS: THIAMINE HCL 100 MG TABLET PO SCH (09:01)
[2022-12-19] MEDS: LORATADINE 10 MG TABLET PO SCH (09:01)
[2022-12-19] MEDS: INSULIN REGULAR, HUMAN 100 UNITS/ML, 3 ML VIAL (humuLIN R) SUBCUT PRN ×4 (09:04→20:26)
[2022-12-19] MEDS: INSULIN GLARGINE 100 UNITS/ML, 10 ML VIAL SUBCUT SCH ×2 (09:09→20:30)
[2022-12-19] MEDS: OMEGA-3/DHA/EPA/FISH OIL 1 GM CAPSULE PO SCH ×2 (09:10→20:38)
[2022-12-19] MEDS: VITAMIN E 400 UNIT CAPSULE PO SCH (09:10)
[2022-12-19] MEDS: CEFEPIME 1 GM in D5W 50 ML IV SCH ×2 (09:12→20:37)
[2022-12-19] MEDS: FLUTICASONE PROPIONATE 50 mCg/SPRAY 16 GM NS SCH (09:25)
[2022-12-19] MEDS: PYRIDOXINE HCL 50 MG TABLET PO SCH (09:25)
--- NOTE | 2022-12-19 09:43 | NUR ---
RT NOTES Pt cont. to tolerate 2L NC. H.R 64 RR 25 sat 100%. No distress noted. at bedside Addendum: 12/19/22 at 0954 by Karol Samson RT wrong pt
--- NOTE | 2022-12-19 11:40 | NUR ---
RT NOTES Dr Jennifer boateng, unable to titrate FIO2 <45% due to low sat, RN at bedside.
--- NOTE | 2022-12-19 11:40 | NUR ---
Dr. Rodriguez @ bedside, no new orders.
--- NOTE | 2022-12-19 12:30 | NUR ---
Family members @ bedside, pt comfortable.
[2022-12-19] MEDS: FLUCONAZOLE 200 mg/ NS 100 ML IV SCH (13:11)
--- NOTE | 2022-12-19 19:30 | NUR ---
RECEIVED AWAKE, ALERT AND ORIENTED X4. PATIENT IS FOLLOWING COMMMANDS. PRE K SPECIAL EDUCATION TEACHER IS SHOWING ATRIAL FIB, DENIES CHEST PAIN. LEFT WRIST IV INFUSING IS NS AT 5 ML/HR. AFEBRILE. PATIENT IS ON 45% HI-FLOW O2. SAT 89-90%. HOB IS ELEVATED. ABDOMEN IS SOFT AND NON-DISTENDED. EATING DINNER AT THE MOMENT. MARTÍNEZ INTACT AND PATENT, DRAINING WELL. TEMP 98.1, ORALLY.
[2022-12-19] MEDS: ATORVASTATIN 20 MG TABLET PO SCH (20:40)
[2022-12-19] MEDS: MILK OF MAGNESIA 30 ML UDC PO PRN (20:44)
[2022-12-19] MEDS: PREGABALIN 75 MG CAPSULE (LYRICA) PO SCH (20:47)
[2022-12-20] VITALS (24 sets, daily range): BP systolic 108–158
[2022-12-20] MEDS: DILTIAZEM HCL 30 MG TABLET PO SCH ×3 (05:48→17:15)
[2022-12-20] MEDS: INSULIN REGULAR, HUMAN 100 UNITS/ML, 3 ML VIAL (humuLIN R) SUBCUT PRN ×5 (06:18→22:13)
[2022-12-20 06:44] LABS: BASOPHILS % (AUTO) 0.1 % (0.0-2.0); EOSINOPHILS % (AUTO) 0.1 % (0.0-4.0); HEMATOCRIT 36.7 % (36-48); HEMOGLOBIN 11.8 g/dL (12.0-16.0); LYMPHOCYTES # (AUTO) 0.5 K/uL (1.0-5.5); LYMPHOCYTES % (AUTO) 3.7 % (20.5-51.5); MEAN CORPUSCULAR HEMOGLOBIN 29 pg (27-31); MEAN CORPUSCULAR HGB CONC 32 % (32-36); MEAN CORPUSCULAR VOLUME 90 fL (79.0-98.0); MONOCYTES # (AUTO) 0.4 K/uL (0.0-1.0); MONOCYTES % (AUTO) 3.3 % (1.7-9.3); NEUTROPHILS # (AUTO) 11.2 K/uL (1.8-7.7); NEUTROPHILS % (AUTO) 92.8 % (40.0-70.0); PLATELET COUNT (AUTO) 72 K/uL (130-430); RED CELL DISTRIBUTION WIDTH 16.7 % (9.0-15.0); WHITE BLOOD COUNT (AUTO) 12.1 K/uL (4.8-10.8)
--- NOTE | 2022-12-20 07:00 | NUR ---
OPEN NOTE: Received report from the clinical interviewer Nurse DOMINIC. 77-year-old female with long history of diabetes mellitus, hypertension, and chronic atrial fibrillation, presented to the Emergency Room with shortness of breath, tachycardia, altered level of consciousness. The patient has been on po Levaquin for pneumonia recently. Currently she shows RVR with A fib. Pt with jason catheter yellow output, bilateral hand discoloration, DTI left heel upon admission, right forearm iv 22g with NS @5ml/hr. Pt on high flow nasal cannula running at 45%, 20L. AVPAP at night @18rt, 450v, 5peep, and 40%. Per family request there is a password for any visitors or callers wants to see or connect with pt has to provide the password.
[2022-12-20] MEDS: IPRATROPIUM BROM 0.5 MG/2.5 ML VIAL.NEB (ATROVENT) INH SCH ×4 (07:24→19:40)
[2022-12-20] MEDS: LevALBUTEROL HCL 1.25 MG/0.5 ML *CONC.* VIAL.NEB (XOPENEX CONC.) INH SCH ×4 (07:25→19:40)
--- NOTE | 2022-12-20 07:30 | NUR ---
RT @bedside, pt on HIFLOW 45% 15 .
--- NOTE | 2022-12-20 07:38 | NUR ---
RT NOTES 0730 PT TAKEN OFF BIPAP AND PLACED ON HIFLOW 45% 15 L. RN AWARE, WILL MONITOR. Addendum: 12/20/22 at 0739 by Alondra Sotomayor RT Amended: Links added.
[2022-12-20 07:46] LABS: ALANINE AMINOTRANSFERASE 196 U/L (12-78); ALBUMIN 1.8 g/dL (3.4-4.8); ANION GAP 5 (5-15); ASPARTATE AMINOTRANSFERASE 63 U/L (10-37); CALCIUM 8.5 mg/dL (8.4-11.0); CHLORIDE 104 mmol/L (98-107); CREATININE 0.96 mg/dL (0.55-1.30); GLUCOSE 229 mg/dL (70-99); TOTAL BILIRUBIN 0.5 mg/dL (0.0-1.0); UREA NITROGEN, BLOOD 70 mg/dL (8-21)
[2022-12-20] MEDS: FERROUS SULFATE 325 MG TABLET.DR PO SCH (08:05)
[2022-12-20] MEDS: DOCUSATE SODIUM 100 MG CAPSULE PO SCH (08:05)
[2022-12-20] MEDS: DULoxetine HCL 30 MG CAPSULE.DR (CYMBALTA) PO SCH (08:05)
[2022-12-20] MEDS: LORATADINE 10 MG TABLET PO SCH (08:05)
[2022-12-20] MEDS: LACTOBACILLUS RHAMNOSUS GG 1 CAP CAPSULE PO SCH (08:05)
[2022-12-20] MEDS: THIAMINE HCL 100 MG TABLET PO SCH (08:05)
[2022-12-20] MEDS: METHYLPREDNISOLONE SOD SUCC 40 MG/ML VIAL IVP SCH ×2 (08:05→21:48)
[2022-12-20] MEDS: APIXABAN 2.5 MG TABLET PO SCH ×2 (08:06→22:01)
[2022-12-20] MEDS: PYRIDOXINE HCL 50 MG TABLET PO SCH (08:07)
[2022-12-20] MEDS: OMEGA-3/DHA/EPA/FISH OIL 1 GM CAPSULE PO SCH ×2 (08:07→21:50)
[2022-12-20] MEDS: METOPROLOL SUCCINATE 25 MG TAB.SR.24H (TOPROL XL) PO SCH (08:07)
[2022-12-20] MEDS: VITAMIN E 400 UNIT CAPSULE PO SCH (08:08)
[2022-12-20] MEDS: PRIMIDONE 50 MG TABLET PO SCH ×2 (09:07→21:51)
[2022-12-20] MEDS: FLUTICASONE PROPIONATE 50 mCg/SPRAY 16 GM NS SCH (09:08)
[2022-12-20] MEDS: INSULIN GLARGINE 100 UNITS/ML, 10 ML VIAL SUBCUT SCH ×2 (09:10→22:06)
[2022-12-20] MEDS: FLUCONAZOLE 200 mg/ NS 100 ML IV SCH (11:59)
--- NOTE | 2022-12-20 15:08 | NUR ---
Nutrition F/U RD reviewed pts current EMR including diet hx, physician notes, nursing notes, pertinent labs/meds/procedures, care trends and care activity. Admitting Diagnosis: Pneumonia, atrial fibrillation, RVR Reviewed Pertinent Medical/Surgical Hx Medical Record; Patient Medical History Comment: Per EMR: 77y female with PMHx HTN, chronic afib, CHF, sleep apnea who presented to ED c/o SOB w/tachycardia and ALOC. After assessment, patient found with pneumonia and UTI. Patient admitted to the ICU on 12/08; Patient tolerating off bipap 12/11 Subjective Information: RD visited ICU earlier today. Primary RN reported that pt has been eating well, however, still requires ICU care d/t requiring HFNC at 45% during the day or BiPAP at night, otherwise she desats quickly. She also endorsed pt's LBM was 2 nights ago, 12/18, however, this was not documented. Per EMR review, good PO intakes since last RD visit; Kirit score: 15 -- per Steward/Stewardess Deck note 12/10: 1. Left Lower Abdomen: Healed wound, present on admission. 2. 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 3. Left Posterior Heel: Blanchable redness. 4. Right Posterior Heel: Blanchable redness; 1+ pitting edema to BLE and 2+ pitting edema to BUE. Pt may benefit also from wound healing modular. Current Diet Order/Nutrition Support: Cardiac, CCHO, Mechanical Soft diet w/ FR 1000 mL/day x7 days Ht: 5'6" Wt: 246#/111.6 kg (10/20/22) IBW: 130#/59 kg NEW Estimated Energy Expenditure (kcals/day) 5615-2382 (30-35 kcal/kg IBW for CHF, BMI >40, wound healing) NEW Estimated Protein Required (g/day) 71-89 (1.2-1.5 g/kg IBW for CHF, BMI >40, wound healing) Estimated Fluid Required (l/day) 1000 ml/day per physician d/t CHF Problem/Etiology/Signs/Symptoms * Inadequate oral intake r/t bipap a/e/b no documented PO intake since admit, RN reports patient not eating well. *Improved * Increased nutritional needs R/T wound healing AEB Left Plantar Medial Heel: Chronic wound, possible Diabetic/Neuropathic Ulcer vs Unstageable Pressure Ulcer per Steward/Stewardess Deck note. *New Expected Outcomes/Goals PO intake provides >85% estimated nutritional needs, skin integrity/wt maintenance, nutrition-related labs WNL, normal GI function w/BM q 1-3 days Dietitian Recommendations * Continue Cardiac, CCHO, Mechanical Soft diet w/ FR 1000 mL/day * Giuseppe BID (supplement yields 190 kcal/day, 5 gm protein/day) Follow up Moderate risk: F/U in 3-5 days
--- NOTE | 2022-12-20 15:21 | NUR ---
Dietitian Recommendations * Continue Cardiac, CCHO, Mechanical Soft diet w/ FR 1000 mL/day * Giuseppe BID (supplement yields 190 kcal/day, 5 gm protein/day) LP, MS, RD Please refer to Nutrition F/U for details.
[2022-12-20] MEDS ORDERED: DIGOXIN 0.5 MG/2 ML AMP IVP ONE (18:00)
--- NOTE | 2022-12-20 19:30 | NUR ---
RECEIVED AAO, EATING DINNER. ON 15LPM OF HI-DAVID O2, SAT 91%. CONSULTING BUSINESS DEVELOPER SHOWS ATRIAL FIB, BLOOD PRESSURE WDL, DENIES CHEST PAIN. IVF OF NS IS INFUSING AT 5 ML/HR ON THR RIGHT FA, GA #22. ABDOMEN IS SOFT AND NON-DISTENDED. MARTÍNEZ INTACT AND PATENT, DRAINING WELL.AFEBRILE.
[2022-12-20] MEDS: CEFEPIME 1 GM in D5W 50 ML IV SCH ×2 (21:00→21:47)
[2022-12-20] MEDS: ATORVASTATIN 20 MG TABLET PO SCH (21:50)
[2022-12-20] MEDS: PREGABALIN 75 MG CAPSULE (LYRICA) PO SCH (21:51)
[2022-12-21] VITALS (24 sets, daily range): BP systolic 118–157
[2022-12-21] MEDS: DILTIAZEM HCL 30 MG TABLET PO SCH ×4 (00:45→17:42)
[2022-12-21 06:25] LABS: BASOPHILS % (AUTO) 0.1 % (0.0-2.0); EOSINOPHILS % (AUTO) 0.1 % (0.0-4.0); HEMATOCRIT 37.3 % (36-48); HEMOGLOBIN 11.8 g/dL (12.0-16.0); LYMPHOCYTES # (AUTO) 0.3 K/uL (1.0-5.5); LYMPHOCYTES % (AUTO) 2.3 % (20.5-51.5); MEAN CORPUSCULAR HEMOGLOBIN 28 pg (27-31); MEAN CORPUSCULAR HGB CONC 32 % (32-36); MEAN CORPUSCULAR VOLUME 90 fL (79.0-98.0); MONOCYTES # (AUTO) 0.3 K/uL (0.0-1.0); MONOCYTES % (AUTO) 2.4 % (1.7-9.3); NEUTROPHILS # (AUTO) 13.1 K/uL (1.8-7.7); NEUTROPHILS % (AUTO) 95.1 % (40.0-70.0); PLATELET COUNT (AUTO) 81 K/uL (130-430); RED BLOOD CELL COUNT(AUTO) 4.15 MIL/uL (4.2-6.2); RED CELL DISTRIBUTION WIDTH 16.5 % (9.0-15.0); WHITE BLOOD COUNT (AUTO) 13.7 K/uL (4.8-10.8)
[2022-12-21 06:46] LABS: ANION GAP 6 (5-15); CALCIUM 8.5 mg/dL (8.4-11.0); CHLORIDE 105 mmol/L (98-107); GLUCOSE 221 mg/dL (70-99); UREA NITROGEN, BLOOD 70 mg/dL (8-21)
[2022-12-21] MEDS: LevALBUTEROL HCL 1.25 MG/0.5 ML *CONC.* VIAL.NEB (XOPENEX CONC.) INH SCH ×4 (07:15→19:40)
[2022-12-21] MEDS: IPRATROPIUM BROM 0.5 MG/2.5 ML VIAL.NEB (ATROVENT) INH SCH ×4 (07:15→19:40)
--- NOTE | 2022-12-21 07:29 | NUR ---
RT NOTES 0712 PT TAKEN OFF BIPAP AND PLACED ON 20L 50%. SAT 93%. RN AWARE. WILL CONT TO MONITOR. Addendum: 12/21/22 at 0733 by Alondra Sotomayor RT Amended: Links added.
--- NOTE | 2022-12-21 07:59 | NUR ---
RECEIVED PT FROM EUGENE QUEZADA, PT IS AAO, DENIES PAIN, NO FEVER. ON 22 HIGH FLOW AT 50% 20LI / MIN. VITALS WNL, NO DISTRESS AT THIS TIME.
[2022-12-21] MEDS: INSULIN REGULAR, HUMAN 100 UNITS/ML, 3 ML VIAL (humuLIN R) SUBCUT PRN ×4 (08:21→21:02)
[2022-12-21] MEDS: THIAMINE HCL 100 MG TABLET PO SCH (08:31)
[2022-12-21] MEDS: LACTOBACILLUS RHAMNOSUS GG 1 CAP CAPSULE PO SCH (08:31)
[2022-12-21] MEDS: CEFEPIME 1 GM in D5W 50 ML IV SCH (08:31)
[2022-12-21] MEDS: DULoxetine HCL 30 MG CAPSULE.DR (CYMBALTA) PO SCH (08:31)
[2022-12-21] MEDS: PRIMIDONE 50 MG TABLET PO SCH ×2 (08:32→21:08)
[2022-12-21] MEDS: FERROUS SULFATE 325 MG TABLET.DR PO SCH (08:32)
[2022-12-21] MEDS: DOCUSATE SODIUM 100 MG CAPSULE PO SCH (08:32)
[2022-12-21] MEDS: PYRIDOXINE HCL 50 MG TABLET PO SCH (08:32)
[2022-12-21] MEDS: VITAMIN E 400 UNIT CAPSULE PO SCH (08:33)
[2022-12-21] MEDS: OMEGA-3/DHA/EPA/FISH OIL 1 GM CAPSULE PO SCH ×2 (08:33→21:07)
[2022-12-21] MEDS: APIXABAN 2.5 MG TABLET PO SCH ×2 (08:35→21:07)
[2022-12-21] MEDS: METHYLPREDNISOLONE SOD SUCC 40 MG/ML VIAL IVP SCH ×2 (08:40→21:06)
[2022-12-21] MEDS: LORATADINE 10 MG TABLET PO SCH (08:40)
[2022-12-21] MEDS: METOPROLOL SUCCINATE 25 MG TAB.SR.24H (TOPROL XL) PO SCH (08:41)
[2022-12-21] MEDS: INSULIN GLARGINE 100 UNITS/ML, 10 ML VIAL SUBCUT SCH ×2 (08:43→21:05)
[2022-12-21] MEDS: FLUTICASONE PROPIONATE 50 mCg/SPRAY 16 GM NS SCH (08:49)
[2022-12-21 10:15] LABS: DIGOXIN 0.2 ng/mL (0.80-2.00)
[2022-12-21] MEDS: FLUCONAZOLE 200 mg/ NS 100 ML IV SCH (12:12)
--- NOTE | 2022-12-21 12:13 | NUR ---
RT NOTES 1200 15L HI FLOW. PT TOLERATING WELL, SAT 94%.RN AWARE. Addendum: 12/21/22 at 1214 by Alondra Sotomayor RT Amended: Links added.
--- NOTE | 2022-12-21 14:19 | NUR ---
pt resting in bed, sleeping. no resp distress, vitals wnl.
--- NOTE | 2022-12-21 15:56 | NUR ---
PT IN BED, PT TALKING TO HER VISITORS AT BEDSIDE.
[2022-12-21] MEDS ORDERED: DIGOXIN 0.5 MG/2 ML AMP IVP ONE (16:15)
--- NOTE | 2022-12-21 16:36 | NUR ---
digoxin 0.25mg given as ordered. explained to pt effects and side effects of medications.
--- NOTE | 2022-12-21 19:30 | NUR ---
RECEIVED AAO, FOLLOWS COMMANDS. ON O2 HI-FLOW @ 50%. SAT 95%. NO SOB NOTED. SUBSTATION WIREMAN IS SHOWING ATRIAL FIB , RATE 84-104. DENIES CHEST PAIN. RIGHT FA WITH SL GA#22. SKIN WARM AND DRY. TEMP 98.3. ABDOMEN SOFT AND NON-DISTENDED. MARTÍNEZ INTACT AND PATENT, DRAINING WELL.
--- NOTE | 2022-12-21 19:57 | NUR ---
HI-FLOW O2 DROPPED TO 45% FROM 50%. WILL CONTINUE TO MONITOR.
[2022-12-21] MEDS: PREGABALIN 75 MG CAPSULE (LYRICA) PO SCH (21:08)
[2022-12-21] MEDS: ATORVASTATIN 20 MG TABLET PO SCH (21:08)
--- NOTE | 2022-12-21 21:54 | NUR ---
PATIENT IS PLACED ON BIPAP MACHINE AT THIS TIME BECAUSE SHE CONTINEOUS TO DESTURATE ON HI FLOW.
[2022-12-22] VITALS (24 sets, daily range): BP systolic 105–156
[2022-12-22] MEDS: DILTIAZEM HCL 30 MG TABLET PO SCH ×4 (00:27→18:08)
[2022-12-22 06:16] LABS: BASOPHILS % (AUTO) 0.3 % (0.0-2.0); EOSINOPHILS % (AUTO) 0.1 % (0.0-4.0); HEMATOCRIT 37.3 % (36-48); HEMOGLOBIN 11.8 g/dL (12.0-16.0); LYMPHOCYTES # (AUTO) 0.4 K/uL (1.0-5.5); LYMPHOCYTES % (AUTO) 2.6 % (20.5-51.5); MEAN CORPUSCULAR HEMOGLOBIN 28 pg (27-31); MEAN CORPUSCULAR HGB CONC 32 % (32-36); MEAN CORPUSCULAR VOLUME 90 fL (79.0-98.0); MONOCYTES # (AUTO) 0.4 K/uL (0.0-1.0); MONOCYTES % (AUTO) 2.7 % (1.7-9.3); NEUTROPHILS # (AUTO) 13.8 K/uL (1.8-7.7); NEUTROPHILS % (AUTO) 94.3 % (40.0-70.0); PLATELET COUNT (AUTO) 95 K/uL (130-430); RED BLOOD CELL COUNT(AUTO) 4.17 MIL/uL (4.2-6.2); RED CELL DISTRIBUTION WIDTH 16.9 % (9.0-15.0); WHITE BLOOD COUNT (AUTO) 14.6 K/uL (4.8-10.8)
[2022-12-22] MEDS: INSULIN REGULAR, HUMAN 100 UNITS/ML, 3 ML VIAL (humuLIN R) SUBCUT PRN ×3 (06:35→18:11)
[2022-12-22 06:38] LABS: ALANINE AMINOTRANSFERASE 264 U/L (12-78); ALBUMIN 1.9 g/dL (3.4-4.8); ANION GAP 3 (5-15); ASPARTATE AMINOTRANSFERASE 96 U/L (10-37); CALCIUM 8.7 mg/dL (8.4-11.0); CHLORIDE 105 mmol/L (98-107); CREATININE 0.88 mg/dL (0.55-1.30); GLUCOSE 204 mg/dL (70-99); TOTAL BILIRUBIN 0.4 mg/dL (0.0-1.0); UREA NITROGEN, BLOOD 71 mg/dL (8-21)
[2022-12-22] MEDS: LevALBUTEROL HCL 1.25 MG/0.5 ML *CONC.* VIAL.NEB (XOPENEX CONC.) INH SCH ×4 (07:36→19:46)
[2022-12-22] MEDS: IPRATROPIUM BROM 0.5 MG/2.5 ML VIAL.NEB (ATROVENT) INH SCH ×4 (07:36→19:46)
[2022-12-22] MEDS: CEFEPIME 1 GM in D5W 50 ML IV SCH ×2 (09:36→21:14)
[2022-12-22] MEDS: FLUTICASONE PROPIONATE 50 mCg/SPRAY 16 GM NS SCH (09:37)
[2022-12-22] MEDS: INSULIN GLARGINE 100 UNITS/ML, 10 ML VIAL SUBCUT SCH ×2 (09:39→21:21)
[2022-12-22] MEDS: OMEGA-3/DHA/EPA/FISH OIL 1 GM CAPSULE PO SCH ×2 (09:45→21:14)
[2022-12-22] MEDS: VITAMIN E 400 UNIT CAPSULE PO SCH (09:45)
[2022-12-22] MEDS: PYRIDOXINE HCL 50 MG TABLET PO SCH (09:45)
[2022-12-22] MEDS: APIXABAN 2.5 MG TABLET PO SCH ×2 (09:52→21:12)
[2022-12-22] MEDS: METHYLPREDNISOLONE SOD SUCC 40 MG/ML VIAL IVP SCH ×2 (09:53→21:10)
[2022-12-22] MEDS: THIAMINE HCL 100 MG TABLET PO SCH (09:55)
[2022-12-22] MEDS: METOPROLOL SUCCINATE 25 MG TAB.SR.24H (TOPROL XL) PO SCH (09:55)
[2022-12-22] MEDS: MILK OF MAGNESIA 30 ML UDC PO PRN (09:55)
[2022-12-22] MEDS: LACTOBACILLUS RHAMNOSUS GG 1 CAP CAPSULE PO SCH (09:55)
[2022-12-22] MEDS: DOCUSATE SODIUM 100 MG CAPSULE PO SCH (09:55)
[2022-12-22] MEDS: LORATADINE 10 MG TABLET PO SCH (09:55)
[2022-12-22] MEDS: FERROUS SULFATE 325 MG TABLET.DR PO SCH (09:55)
[2022-12-22] MEDS: DULoxetine HCL 30 MG CAPSULE.DR (CYMBALTA) PO SCH (09:55)
[2022-12-22] MEDS: PRIMIDONE 50 MG TABLET PO SCH ×2 (11:38→21:11)
[2022-12-22] MEDS ORDERED: FUROSEMIDE 20 MG/2 ML VIAL IVP ONE (14:00)
--- NOTE | 2022-12-22 14:20 | NUR ---
TO CT SCAN TRANSFERRED PT VIA BED, ON PORTABLE VICTIMS ADVOCATE CLERK/SPECIALIST AND O2.
--- NOTE | 2022-12-22 14:35 | NUR ---
TO ICU BROUGHT PT TO ROOM 6.
[2022-12-22] MEDS: FLUCONAZOLE 200 mg/ NS 100 ML IV SCH (15:18)
[2022-12-22] MEDS ORDERED: DIGOXIN 0.5 MG/2 ML AMP IVP ONE (16:45)
--- NOTE | 2022-12-22 17:00 | NUR ---
PICC CALLED AND SPOKE TO DR AMEZQUITA. PT LOST HER IV ACCESS. SITE SWOLLEN. NEW ORDER FOR PICC RECEIVED. PT CONSENTED.
[2022-12-22 18:22] LABS: INR 1.1 (0.8-1.2)
--- NOTE | 2022-12-22 20:00 | NUR ---
RN NOTES NOT IN ACUTE DISTRESS, O2 @ 4L/MIN VIA OXYMIZER.
[2022-12-22] MEDS: PREGABALIN 75 MG CAPSULE (LYRICA) PO SCH (21:12)
[2022-12-22] MEDS: ATORVASTATIN 20 MG TABLET PO SCH (21:12)
--- NOTE | 2022-12-22 23:00 | NUR ---
RN NOTES PATIENT SWITCHED BACK TO AVAPS.
[2022-12-23] VITALS (19 sets, daily range): BP systolic 110–137
--- NOTE | 2022-12-23 06:00 | NUR ---
RM NOTES AM CARE DONE, PT REPOSITIONED FOR COMFORT.
[2022-12-23] MEDS: INSULIN REGULAR, HUMAN 100 UNITS/ML, 3 ML VIAL (humuLIN R) SUBCUT PRN ×3 (06:07→17:57)
[2022-12-23] MEDS: DILTIAZEM HCL 30 MG TABLET PO SCH ×3 (06:08→17:56)
[2022-12-23 06:35] LABS: BASOPHILS % (AUTO) 0.1 % (0.0-2.0); HEMATOCRIT 38.4 % (36-48); HEMOGLOBIN 12.5 g/dL (12.0-16.0); LYMPHOCYTES # (AUTO) 0.4 K/uL (1.0-5.5); LYMPHOCYTES % (AUTO) 2.5 % (20.5-51.5); MEAN CORPUSCULAR HEMOGLOBIN 29 pg (27-31); MEAN CORPUSCULAR HGB CONC 33 % (32-36); MEAN CORPUSCULAR VOLUME 89 fL (79.0-98.0); MONOCYTES # (AUTO) 0.4 K/uL (0.0-1.0); MONOCYTES % (AUTO) 2.3 % (1.7-9.3); NEUTROPHILS # (AUTO) 15.2 K/uL (1.8-7.7); NEUTROPHILS % (AUTO) 95.1 % (40.0-70.0); PLATELET COUNT (AUTO) 95 K/uL (130-430); RED BLOOD CELL COUNT(AUTO) 4.34 MIL/uL (4.2-6.2)
[2022-12-23 07:04] LABS: ALANINE AMINOTRANSFERASE 294 U/L (12-78); ANION GAP 4 (5-15); ASPARTATE AMINOTRANSFERASE 106 U/L (10-37); CALCIUM 8.8 mg/dL (8.4-11.0); CHLORIDE 102 mmol/L (98-107); CREATININE 1.09 mg/dL (0.55-1.30); GLUCOSE 217 mg/dL (70-99); TOTAL BILIRUBIN 0.5 mg/dL (0.0-1.0); UREA NITROGEN, BLOOD 70 mg/dL (8-21)
[2022-12-23] MEDS: IPRATROPIUM BROM 0.5 MG/2.5 ML VIAL.NEB (ATROVENT) INH SCH ×4 (07:30→20:49)
[2022-12-23] MEDS: LevALBUTEROL HCL 1.25 MG/0.5 ML *CONC.* VIAL.NEB (XOPENEX CONC.) INH SCH ×4 (07:30→20:49)
--- NOTE | 2022-12-23 08:00 | NUR ---
PATIENT IN BED, NO SIGNS AND SYMPTOMS OF DISTRESS, ON OXYMIZER 3L, A/OX4, MOVES ALL EXTREMITIES WITH GENERALIZED WEAKNESS, PICC RIGHT UPPER ARM, SAFETY MEASURES IN PLACE, MARTÍNEZ DRAINING CLEAR YELLOW URINE TO GRAVITY.
[2022-12-23] MEDS: CEFEPIME 1 GM in D5W 50 ML IV SCH ×2 (09:27→21:18)
[2022-12-23] MEDS: OMEGA-3/DHA/EPA/FISH OIL 1 GM CAPSULE PO SCH ×2 (09:28→21:00)
[2022-12-23] MEDS: LACTOBACILLUS RHAMNOSUS GG 1 CAP CAPSULE PO SCH (09:28)
[2022-12-23] MEDS: APIXABAN 2.5 MG TABLET PO SCH ×2 (09:31→21:22)
[2022-12-23] MEDS: INSULIN GLARGINE 100 UNITS/ML, 10 ML VIAL SUBCUT SCH ×2 (09:33→22:21)
[2022-12-23] MEDS: DULoxetine HCL 30 MG CAPSULE.DR (CYMBALTA) PO SCH (09:33)
[2022-12-23] MEDS: LORATADINE 10 MG TABLET PO SCH (09:33)
[2022-12-23] MEDS: FERROUS SULFATE 325 MG TABLET.DR PO SCH (09:33)
[2022-12-23] MEDS: THIAMINE HCL 100 MG TABLET PO SCH (09:33)
[2022-12-23] MEDS: METHYLPREDNISOLONE SOD SUCC 40 MG/ML VIAL IVP SCH ×2 (09:34→21:19)
[2022-12-23] MEDS: METOPROLOL SUCCINATE 25 MG TAB.SR.24H (TOPROL XL) PO SCH (09:34)
[2022-12-23] MEDS: DOCUSATE SODIUM 100 MG CAPSULE PO SCH (09:34)
[2022-12-23] MEDS: PRIMIDONE 50 MG TABLET PO SCH ×2 (09:35→21:20)
[2022-12-23] MEDS: FLUTICASONE PROPIONATE 50 mCg/SPRAY 16 GM NS SCH (09:35)
[2022-12-23] MEDS: VITAMIN E 400 UNIT CAPSULE PO SCH (09:35)
[2022-12-23] MEDS: PYRIDOXINE HCL 50 MG TABLET PO SCH (09:35)
--- NOTE | 2022-12-23 10:49 | NUR ---
SPOKE WITH MARLON INFORMING DR. RENDON OF NEW CONSULT PLACED BY DR. VILLA.
[2022-12-23 11:43] LABS: DIGOXIN 0.5 ng/mL (0.80-2.00)
[2022-12-23] MEDS: FLUCONAZOLE 200 mg/ NS 100 ML IV SCH (12:11)
--- NOTE | 2022-12-23 13:30 | NUR ---
PATIENT IS NPO FOR ABDOMINAL ULTRASOUND. PT UNDERSTANDS NPO STATUS.
--- NOTE | 2022-12-23 16:00 | NUR ---
ASSESSED TO SEE IF MARTÍNEZ CATHETER WAS LEAKING BUT NOTED WEEPING.
[2022-12-23 17:05] LABS: INR 1.1 (0.8-1.2); PROTHROMBIN TIME 11.3 SECS (9.5-12.5)
[2022-12-23 17:12] LABS: TOTAL IRON BIND. CAPACITY 195 ug/dL (250-450)
[2022-12-23] MEDS ORDERED: DIGOXIN 0.5 MG/2 ML AMP IVP ONE (17:45)
--- NOTE | 2022-12-23 18:54 | NUR ---
LINDA CR AT BEDSIDE, UPDATED ON PLAN OF CARE. ANSWERED QUESTIONS WITHIN SCOPE OF PRACTICE.
[2022-12-23] MEDS: ATORVASTATIN 20 MG TABLET PO SCH (21:20)
[2022-12-23] MEDS: PREGABALIN 75 MG CAPSULE (LYRICA) PO SCH (21:20)
--- NOTE | 2022-12-23 23:20 | NUR ---
Transferred to [facility] via bed. report given to Kemar KNIGHT. patient connected to telemetry box.
[2022-12-24] VITALS: BP_SYST 110
[2022-12-24] MEDS: DILTIAZEM HCL 30 MG TABLET PO SCH ×4 (00:05→17:31)
[2022-12-24 06:33] LABS: BASOPHILS % (AUTO) 0.1 % (0.0-2.0); HEMATOCRIT 38.1 % (36-48); HEMOGLOBIN 12.1 g/dL (12.0-16.0); LYMPHOCYTES # (AUTO) 0.3 K/uL (1.0-5.5); LYMPHOCYTES % (AUTO) 2.1 % (20.5-51.5); MEAN CORPUSCULAR HEMOGLOBIN 29 pg (27-31); MEAN CORPUSCULAR HGB CONC 32 % (32-36); MEAN CORPUSCULAR VOLUME 91 fL (79.0-98.0); MONOCYTES # (AUTO) 0.3 K/uL (0.0-1.0); MONOCYTES % (AUTO) 2.5 % (1.7-9.3); NEUTROPHILS # (AUTO) 13.1 K/uL (1.8-7.7); NEUTROPHILS % (AUTO) 95.3 % (40.0-70.0); PLATELET COUNT (AUTO) 89 K/uL (130-430); WHITE BLOOD COUNT (AUTO) 13.7 K/uL (4.8-10.8)
[2022-12-24 06:52] LABS: ANION GAP 3 (5-15); CALCIUM 8.8 mg/dL (8.4-11.0); CHLORIDE 103 mmol/L (98-107); CREATININE 0.94 mg/dL (0.55-1.30); GLUCOSE 243 mg/dL (70-99); UREA NITROGEN, BLOOD 67 mg/dL (8-21)
[2022-12-24] MEDS: INSULIN REGULAR, HUMAN 100 UNITS/ML, 3 ML VIAL (humuLIN R) SUBCUT PRN ×4 (06:53→20:23)
[2022-12-24] MEDS: LevALBUTEROL HCL 1.25 MG/0.5 ML *CONC.* VIAL.NEB (XOPENEX CONC.) INH SCH ×5 (07:00→19:55)
[2022-12-24] MEDS: IPRATROPIUM BROM 0.5 MG/2.5 ML VIAL.NEB (ATROVENT) INH SCH ×5 (07:00→19:55)
--- NOTE | 2022-12-24 07:31 | NUR ---
CLOSING NOTES Patient resting in bed - no s/s pain or distress noted. Respirations even and unlabored - head of bed elevated oxymizer 2L. IV site patent - no s/s infection or infiltration. Bed locked and in lowest position. Bed alarm on.
[2022-12-24 07:45] VITALS: BP_SYST 125
--- NOTE | 2022-12-24 07:45 | NUR ---
OPENING NOTE Patient in bed resting. A/O x 4 Yakut speaking. Breathing even and unlabored on 3LPM via oxymizer. Patient has NATALIE PICC on TKO. Instructed to use call light for needs. Safety checks in place and bed is locked in lowest position, call light within reach. All needs met at this time and will continue to monitor.
[2022-12-24] MEDS: METOPROLOL SUCCINATE 25 MG TAB.SR.24H (TOPROL XL) PO SCH (09:26)
[2022-12-24] MEDS: DULoxetine HCL 30 MG CAPSULE.DR (CYMBALTA) PO SCH (09:27)
[2022-12-24] MEDS: OMEGA-3/DHA/EPA/FISH OIL 1 GM CAPSULE PO SCH ×2 (09:27→20:03)
[2022-12-24] MEDS: THIAMINE HCL 100 MG TABLET PO SCH (09:27)
[2022-12-24] MEDS: DOCUSATE SODIUM 100 MG CAPSULE PO SCH (09:27)
[2022-12-24] MEDS: LACTOBACILLUS RHAMNOSUS GG 1 CAP CAPSULE PO SCH (09:27)
[2022-12-24] MEDS: PRIMIDONE 50 MG TABLET PO SCH ×2 (09:27→20:13)
[2022-12-24] MEDS: CEFEPIME 1 GM in D5W 50 ML IV SCH ×2 (09:28→20:03)
[2022-12-24] MEDS: FERROUS SULFATE 325 MG TABLET.DR PO SCH (09:28)
[2022-12-24] MEDS: LORATADINE 10 MG TABLET PO SCH (09:28)
[2022-12-24] MEDS: METHYLPREDNISOLONE SOD SUCC 40 MG/ML VIAL IVP SCH ×2 (09:30→20:03)
[2022-12-24] MEDS: FLUTICASONE PROPIONATE 50 mCg/SPRAY 16 GM NS SCH (09:31)
[2022-12-24] MEDS: VITAMIN E 400 UNIT CAPSULE PO SCH (09:31)
[2022-12-24] MEDS: PYRIDOXINE HCL 50 MG TABLET PO SCH (09:32)
[2022-12-24 09:34] LABS: BILIRUBIN,DIRECT 0.2 mg/dL (0.0-0.3); TOTAL BILIRUBIN 0.5 mg/dL (0.0-1.0)
[2022-12-24] MEDS: APIXABAN 2.5 MG TABLET PO SCH ×2 (09:35→20:04)
[2022-12-24] MEDS: INSULIN GLARGINE 100 UNITS/ML, 10 ML VIAL SUBCUT SCH ×2 (09:36→20:22)
[2022-12-24 11:55] VITALS: BP_SYST 149
--- NOTE | 2022-12-24 12:10 | NUR ---
ROUNDS: Patient in bed resting. Instructed to use call light for needs. Safety checks in place and bed is locked in lowest position, call light within reach. All needs met at this time and will continue to monitor.
[2022-12-24 15:00] VITALS: BP_SYST 135
--- NOTE | 2022-12-24 16:15 | NUR ---
ROUNDS: Patient in bed resting. Breathing is even and unlabored on NC 2LPM. No pain, no distress, no SOB. Instructed to use call light for needs. Safety checks in place and bed is locked in lowest position, call light within reach. All needs met at this time and will continue to monitor.
[2022-12-24] MEDS ORDERED: DIGOXIN 0.5 MG/2 ML AMP IVP ONE (17:00)
--- NOTE | 2022-12-24 18:51 | NUR ---
CLOSING NOTE Patient in bed resting. A/O x 4 Greenlandic speaking. Breathing even and unlabored on 2LPM via NC. No pain, no distress, no sob noted at this time. Patient has NATALIE PICC on SL. Patient has jason draining yellow urine to gravity. Patient on 1500ml fluid restriction. Instructed to use call light for needs. Safety checks in place and bed is locked in lowest position, call light within reach. All needs met at this time and will endorse to shift engineer nurse.
[2022-12-24 20:00] VITALS: BP_SYST 143
[2022-12-24] MEDS: PREGABALIN 75 MG CAPSULE (LYRICA) PO SCH (20:03)
[2022-12-25 00:35] VITALS: BP_SYST 140
[2022-12-25] MEDS: DILTIAZEM HCL 30 MG TABLET PO SCH ×4 (00:56→17:05)
[2022-12-25] MEDS: ACETAMINOPHEN 325 MG TABLET PO PRN (02:42)
[2022-12-25] MEDS: INSULIN REGULAR, HUMAN 100 UNITS/ML, 3 ML VIAL (humuLIN R) SUBCUT PRN ×4 (06:46→21:14)
[2022-12-25 07:16] VITALS: BP_SYST 139
--- NOTE | 2022-12-25 07:16 | NUR ---
OPENING NOTE Patient in bed resting. A/O x 4 Welsh speaking. Breathing even and unlabored on 2LPM via NC. No pain, no distress, no sob noted at this time. Patient has NATALIE PICC on SL. Patient has Tamez draining yellow urine to gravity. Patient on 1500ml fluid restriction. Instructed to use call light for needs. Safety checks in place and bed is locked in lowest position, call light within reach. All needs met at this time and will continue to monitor.
[2022-12-25] MEDS: IPRATROPIUM BROM 0.5 MG/2.5 ML VIAL.NEB (ATROVENT) INH SCH ×4 (07:28→19:49)
[2022-12-25] MEDS: LevALBUTEROL HCL 1.25 MG/0.5 ML *CONC.* VIAL.NEB (XOPENEX CONC.) INH SCH ×4 (07:28→19:50)
--- NOTE | 2022-12-25 07:40 | NUR ---
GI MD DR Ruvalcaba spoke with me regarding labs he ordered from 12/23/22: LIVER ANTIBODIES. They are still in process and is asking regarding them. I will place a call to Lab and call him back with updates.
--- NOTE | 2022-12-25 08:30 | NUR ---
LAB Placed a call to Lab to inquire on labs that MD Ghosh wrote, per Lab Liver antibodies take a week and everything else in already resulted. I stated that I didn't see them on my side. I will endorse to MD Ruvalcaba.
--- NOTE | 2022-12-25 08:46 | NUR ---
MD SERVIN Informed regarding labs and he stated that he was able to see the labs resulted once I spoke with Lab techs. The remainder of the labs take a week for results. was made aware.
[2022-12-25] MEDS: METOPROLOL SUCCINATE 25 MG TAB.SR.24H (TOPROL XL) PO SCH (09:00)
[2022-12-25] MEDS: METHYLPREDNISOLONE SOD SUCC 40 MG/ML VIAL IVP SCH (09:10)
[2022-12-25] MEDS: CEFEPIME 1 GM in D5W 50 ML IV SCH ×2 (09:10→21:36)
[2022-12-25] MEDS: VITAMIN E 400 UNIT CAPSULE PO SCH (09:14)
[2022-12-25] MEDS: PRIMIDONE 50 MG TABLET PO SCH ×2 (09:14→21:47)
[2022-12-25] MEDS: DULoxetine HCL 30 MG CAPSULE.DR (CYMBALTA) PO SCH (09:14)
[2022-12-25] MEDS: LACTOBACILLUS RHAMNOSUS GG 1 CAP CAPSULE PO SCH (09:14)
[2022-12-25] MEDS: THIAMINE HCL 100 MG TABLET PO SCH (09:14)
[2022-12-25] MEDS: DOCUSATE SODIUM 100 MG CAPSULE PO SCH (09:14)
[2022-12-25] MEDS: LORATADINE 10 MG TABLET PO SCH (09:14)
[2022-12-25] MEDS: PYRIDOXINE HCL 50 MG TABLET PO SCH (09:14)
[2022-12-25] MEDS: FERROUS SULFATE 325 MG TABLET.DR PO SCH (09:14)
[2022-12-25] MEDS: OMEGA-3/DHA/EPA/FISH OIL 1 GM CAPSULE PO SCH ×2 (09:14→21:29)
[2022-12-25] MEDS: FLUTICASONE PROPIONATE 50 mCg/SPRAY 16 GM NS SCH (09:15)
[2022-12-25] MEDS: APIXABAN 2.5 MG TABLET PO SCH ×2 (09:16→21:32)
[2022-12-25] MEDS: INSULIN GLARGINE 100 UNITS/ML, 10 ML VIAL SUBCUT SCH ×2 (09:18→21:12)
[2022-12-25 11:07] LABS: ANTI NUCLEAR AB WITH REFLEX Negative (Negative)
--- NOTE | 2022-12-25 11:45 | NUR ---
SON CALL Spoke with son regarding patients pervious stays prior to hospital and he stated patient lived at home. She was at [facility] for four hours before being admitted to the hospital and if its possible she can go back there. Will endorse to CM.
--- NOTE | 2022-12-25 12:00 | NUR ---
ROUNDS: Patient in bed resting. breathing even and unlabored on 2l NC. No pain, no SOB, no distress noted at this time. Instructed to use call light for needs. Safety checks in place and bed is locked in lowest position, call light within reach. All needs met at this time and will continue to monitor.
--- NOTE | 2022-12-25 12:11 | NUR ---
MD GONGORA Spoke with Dr. Gongora regarding discharge back to [facility] and MD stated to wait. MD Espinoza is still on the case and stated that we need to titrate her first. I stated that I understood and will discuss with Dr Espinoza.
[2022-12-25 12:48] VITALS: BP_SYST 141
--- NOTE | 2022-12-25 16:00 | NUR ---
Isidro Espinoza at bedside with patient consulting.
[2022-12-25 16:25] VITALS: BP_SYST 140
--- NOTE | 2022-12-25 18:52 | NUR ---
CLOSING NOTE Patient in bed resting. A/O x 4 Albanian speaking. Breathing even and unlabored on 2LPM via NC. No pain, no distress, no sob noted at this time. Patient has NATALIE PICC on SL. Patient has Tamez draining yellow urine to gravity. Patient on 1500ml fluid restriction. Instructed to use call light for needs. Safety checks in place and bed is locked in lowest position, call light within reach. All needs met at this time and will endorse to mental health social worker nurse.
[2022-12-25] MEDS: PREGABALIN 75 MG CAPSULE (LYRICA) PO SCH (21:30)
[2022-12-26 00:25] VITALS: BP_SYST 139
[2022-12-26] MEDS: DILTIAZEM HCL 30 MG TABLET PO SCH ×4 (00:37→17:47)
[2022-12-26 06:43] VITALS: BP_SYST 123
[2022-12-26] MEDS: LevALBUTEROL HCL 1.25 MG/0.5 ML *CONC.* VIAL.NEB (XOPENEX CONC.) INH SCH ×4 (07:16→20:34)
[2022-12-26] MEDS: IPRATROPIUM BROM 0.5 MG/2.5 ML VIAL.NEB (ATROVENT) INH SCH ×4 (07:16→20:34)
[2022-12-26 08:00] VITALS: BP_SYST 115
--- NOTE | 2022-12-26 08:00 | NUR ---
Opening Notes Patient is AOx4. Patient is on bedrest. Breathing is even and nonlabored, on 2 L O2 via nasal cannula. No ss of acute respiratory distress noted. No SOB noted. Vital signs obtained, as documented. Patient has right upper arm PICC line. Patent. HOB elevated, patient is eating breakfast. Patient denies severe pain. Tamez catheter draining by gravity. Bed is locked, alarm on and at lowest position. Call light within reach.
[2022-12-26] MEDS: INSULIN GLARGINE 100 UNITS/ML, 10 ML VIAL SUBCUT SCH (09:33)
[2022-12-26] MEDS: APIXABAN 2.5 MG TABLET PO SCH (09:33)
[2022-12-26] MEDS: VITAMIN E 400 UNIT CAPSULE PO SCH (09:34)
[2022-12-26] MEDS: FERROUS SULFATE 325 MG TABLET.DR PO SCH (09:35)
[2022-12-26] MEDS: PYRIDOXINE HCL 50 MG TABLET PO SCH (09:35)
[2022-12-26] MEDS: OMEGA-3/DHA/EPA/FISH OIL 1 GM CAPSULE PO SCH ×2 (09:35→21:25)
[2022-12-26] MEDS: predniSONE 10 MG TABLET PO SCH (09:35)
[2022-12-26] MEDS: THIAMINE HCL 100 MG TABLET PO SCH (09:35)
[2022-12-26] MEDS: LORATADINE 10 MG TABLET PO SCH (09:35)
[2022-12-26] MEDS: DOCUSATE SODIUM 100 MG CAPSULE PO SCH (09:36)
[2022-12-26] MEDS: LACTOBACILLUS RHAMNOSUS GG 1 CAP CAPSULE PO SCH (09:36)
[2022-12-26] MEDS: DULoxetine HCL 30 MG CAPSULE.DR (CYMBALTA) PO SCH (09:36)
[2022-12-26] MEDS: ACETAMINOPHEN 325 MG TABLET PO PRN (09:36)
[2022-12-26] MEDS: METOPROLOL SUCCINATE 25 MG TAB.SR.24H (TOPROL XL) PO SCH (09:37)
[2022-12-26 09:38] LABS: ALANINE AMINOTRANSFERASE 314 U/L (12-78); ALBUMIN 1.8 g/dL (3.4-4.8); ASPARTATE AMINOTRANSFERASE 111 U/L (10-37); CALCIUM 8.9 mg/dL (8.4-11.0); CREATININE 0.75 mg/dL (0.55-1.30); GLUCOSE 97 mg/dL (70-99); TOTAL BILIRUBIN 0.4 mg/dL (0.0-1.0); UREA NITROGEN, BLOOD 62 mg/dL (8-21)
[2022-12-26] MEDS: PRIMIDONE 50 MG TABLET PO SCH (09:40)
[2022-12-26] MEDS: CEFEPIME 1 GM in D5W 50 ML IV SCH (09:46)
[2022-12-26] MEDS: FLUTICASONE PROPIONATE 50 mCg/SPRAY 16 GM NS SCH (09:50)
[2022-12-26 10:22] LABS: ANION GAP 4 (5-15); CHLORIDE 105 mmol/L (98-107)
[2022-12-26 10:45] LABS: BASOPHILS # (AUTO) 0.1 K/uL (0.0-0.2); BASOPHILS % (AUTO) 0.4 % (0.0-2.0); EOSINOPHILS # (AUTO) 0.1 K/uL (0.0-0.4); EOSINOPHILS % (AUTO) 0.8 % (0.0-4.0); HEMATOCRIT 32.6 % (36-48); HEMOGLOBIN 10.7 g/dL (12.0-16.0); LYMPHOCYTES # (AUTO) 1.3 K/uL (1.0-5.5); LYMPHOCYTES % (AUTO) 9.6 % (20.5-51.5); MEAN CORPUSCULAR HEMOGLOBIN 29 pg (27-31); MEAN CORPUSCULAR HGB CONC 33 % (32-36); MEAN CORPUSCULAR VOLUME 88 fL (79.0-98.0); MONOCYTES # (AUTO) 0.8 K/uL (0.0-1.0); MONOCYTES % (AUTO) 5.7 % (1.7-9.3); NEUTROPHILS # (AUTO) 11.5 K/uL (1.8-7.7); NEUTROPHILS % (AUTO) 83.5 % (40.0-70.0); PLATELET COUNT (AUTO) 86 K/uL (130-430); RED BLOOD CELL COUNT(AUTO) 3.71 MIL/uL (4.2-6.2); RED CELL DISTRIBUTION WIDTH 17.2 % (9.0-15.0); WHITE BLOOD COUNT (AUTO) 13.8 K/uL (4.8-10.8)
[2022-12-26] MEDS: MILK OF MAGNESIA 30 ML UDC PO PRN (11:36)
[2022-12-26] MEDS: INSULIN REGULAR, HUMAN 100 UNITS/ML, 3 ML VIAL (humuLIN R) SUBCUT PRN ×2 (11:41→17:52)
--- NOTE | 2022-12-26 12:20 | NUR ---
Notes Patient has been cleaned and repositioned. Patient requested milk of magnesium, stated "feels blocked up." Milk of magnesium was administered. Patient is in a comfortable position, HOB elevated. Breathing is even and nonlabored, on 2 L O2 via nasal cannula. No SOB noted. Blood glucose was 251 mg/dl. 6 units of insulin regular was administered. Patient is eating at this time. Safety precautions in place and call light within reach.
[2022-12-26 13:07] LABS: HEPATITIS A AB, IgM Negative (Negative); HEPATITIS B CORE AB, IgM Negative (Negative); HEPATITIS B SURFACE AG Negative (Negative)
[2022-12-26 13:09] VITALS: BP_SYST 119
[2022-12-26 14:05] LABS: FERRITIN 670 ng/mL (15-150)
--- NOTE | 2022-12-26 15:58 | NUR ---
PHYSICAL THERAPY CO-SIGN The Physical Therapy Progress Notes documented by Bar Roller have been reviewed. Reviewed/Co-Signed by: Angelo Brady Documentation Done by:TIFFANIE CASTRO Addendum: 12/26/22 at 1559 by Angelo Brady PT Amended: Links added.
--- NOTE | 2022-12-26 15:59 | NUR ---
>>>PT NOTES<<< PATIENT REFUSED PHYSICAL THERAPY TODAY DUE TO C/O ABDOMINAL PAIN.
[2022-12-26 16:00] VITALS: BP_SYST 116
--- NOTE | 2022-12-26 16:00 | NUR ---
Notes Patient is resting, eyes closed. No facial grimace noted. No ss of distress noted. Safety precautions in place and call light within reach.
--- NOTE | 2022-12-26 18:36 | NUR ---
Closing Notes patient is eating dinner. No ss of distress noted. breathing is even and nonlabored, on 2 L O2 via nasal cannula. No SOB noted. Patient is on a 1500 cc / 24 hrs fluid restriction. Patient denies severe pain. Patient has Tamez with yellow urine draining by gravity. PICC line patent. All needs met. Bed locked, alalrm on, and at lowest position. Call light within reach.
[2022-12-26] MEDS ORDERED: DIGOXIN 0.5 MG/2 ML AMP IVP ONE (19:15)
[2022-12-26 21:00] VITALS: BP_SYST 122
[2022-12-26] MEDS: PREGABALIN 75 MG CAPSULE (LYRICA) PO SCH (21:27)
[2022-12-26] MEDS: ISOSORBIDE MONONITRATE 30 MG TAB.ER.24H PO SCH (21:28)
--- NOTE | 2022-12-26 21:36 | NUR ---
PT WAS SLEEPING AFTER BREATHING TX. ASKED IF THEY WANTED TO BE PLACED ON BIPAP AND PT AGREED. PLACED ON AVAPS 18 450 +5 30%. NO RESP. DISTRESS NOTED. WILL CONTINUE TO MONITOR.
[2022-12-27] VITALS: BP_SYST 105
--- NOTE | 2022-12-27 01:30 | NUR ---
RT NOTES. PT STATED THEY DID NOT WANT TO BE ON BIPAP ANYMORE. PLACED BACK ON 2L. NO RESP. DISTRESS NOTED. WILL CONTINUE TO MONITOR.
[2022-12-27] MEDS: APIXABAN 2.5 MG TABLET PO SCH ×3 (01:45→23:57)
[2022-12-27] MEDS: DILTIAZEM HCL 30 MG TABLET PO SCH ×5 (01:48→23:44)
[2022-12-27] MEDS: CEFEPIME 1 GM in D5W 50 ML IV SCH ×2 (01:58→09:33)
[2022-12-27] MEDS: PRIMIDONE 50 MG TABLET PO SCH ×3 (02:12→23:44)
[2022-12-27] MEDS: INSULIN GLARGINE 100 UNITS/ML, 10 ML VIAL SUBCUT SCH ×3 (02:16→23:52)
[2022-12-27] MEDS: INSULIN REGULAR, HUMAN 100 UNITS/ML, 3 ML VIAL (humuLIN R) SUBCUT PRN ×4 (02:21→23:54)
[2022-12-27] MEDS: IPRATROPIUM BROM 0.5 MG/2.5 ML VIAL.NEB (ATROVENT) INH SCH ×4 (07:06→19:43)
[2022-12-27] MEDS: LevALBUTEROL HCL 1.25 MG/0.5 ML *CONC.* VIAL.NEB (XOPENEX CONC.) INH SCH ×4 (07:06→19:43)
[2022-12-27 08:00] VITALS: BP_SYST 110
--- NOTE | 2022-12-27 08:01 | NUR ---
Closing reports Pt was on bed with call light with reach.Pt had bm and was changed and reposition. resting comfortable.
[2022-12-27] MEDS: ISOSORBIDE MONONITRATE 30 MG TAB.ER.24H PO SCH (09:30)
[2022-12-27] MEDS: predniSONE 10 MG TABLET PO SCH (09:30)
[2022-12-27] MEDS: THIAMINE HCL 100 MG TABLET PO SCH (09:30)
[2022-12-27] MEDS: PYRIDOXINE HCL 50 MG TABLET PO SCH (09:33)
[2022-12-27] MEDS: LACTOBACILLUS RHAMNOSUS GG 1 CAP CAPSULE PO SCH (09:34)
[2022-12-27] MEDS: DOCUSATE SODIUM 100 MG CAPSULE PO SCH (09:34)
[2022-12-27] MEDS: VITAMIN E 400 UNIT CAPSULE PO SCH (09:37)
[2022-12-27] MEDS: LORATADINE 10 MG TABLET PO SCH (09:37)
[2022-12-27] MEDS: METOPROLOL SUCCINATE 25 MG TAB.SR.24H (TOPROL XL) PO SCH (09:37)
[2022-12-27] MEDS: DULoxetine HCL 30 MG CAPSULE.DR (CYMBALTA) PO SCH (09:37)
[2022-12-27] MEDS: OMEGA-3/DHA/EPA/FISH OIL 1 GM CAPSULE PO SCH ×2 (09:37→23:45)
[2022-12-27] MEDS: FERROUS SULFATE 325 MG TABLET.DR PO SCH (09:38)
[2022-12-27] MEDS: FLUTICASONE PROPIONATE 50 mCg/SPRAY 16 GM NS SCH (09:56)
[2022-12-27 11:45] VITALS: BP_SYST 121
[2022-12-27] MEDS: MILK OF MAGNESIA 30 ML UDC PO PRN (13:41)
--- NOTE | 2022-12-27 14:00 | NUR ---
pt resting quietly, given bed bath and jason cather care performed. pt with bm but still with complaint of constipation, given milk of mag. will continue to monitor pt.
[2022-12-27 15:00] VITALS: BP_SYST 112
[2022-12-27 20:00] VITALS: BP_SYST 110
[2022-12-27 23:30] VITALS: BP_SYST 99
[2022-12-27] MEDS: PREGABALIN 75 MG CAPSULE (LYRICA) PO SCH (23:44)
[2022-12-28] VITALS: BP_SYST 93
[2022-12-28] MEDS ORDERED: ETOMIDATE 20 MG/ 10 ML VIAL (AMIDATE) ONE
[2022-12-28] MEDS ORDERED: SUCCINYLCHOLINE CHLORIDE 20 MG/ML(QUELICIN) ONE
[2022-12-28] MEDS ORDERED: EPINEPHrine JECT 0.1 MG/ML SYR ONE
[2022-12-28] MEDS: CEFEPIME 1 GM in D5W 50 ML IV SCH ×2 (00:15→08:54)
[2022-12-28] MEDS: DILTIAZEM HCL 30 MG TABLET PO SCH ×2 (06:33→12:12)
[2022-12-28] MEDS: MILK OF MAGNESIA 30 ML UDC PO PRN (06:33)
[2022-12-28] MEDS: LevALBUTEROL HCL 1.25 MG/0.5 ML *CONC.* VIAL.NEB (XOPENEX CONC.) INH SCH ×3 (07:16→15:01)
[2022-12-28] MEDS: IPRATROPIUM BROM 0.5 MG/2.5 ML VIAL.NEB (ATROVENT) INH SCH ×3 (07:16→15:01)
--- NOTE | 2022-12-28 07:40 | NUR ---
OPENING NOTE Received report from EUGENE Sanchez. Upon entering room, patient is sitting up in bed, alert and oriented x4. She denies pain, but reports tiredness. She is lethargic in conversation. Call light within reach. Safety precautions observed.
[2022-12-28] MEDS: INSULIN REGULAR, HUMAN 100 UNITS/ML, 3 ML VIAL (humuLIN R) SUBCUT PRN ×2 (07:51→12:09)
--- NOTE | 2022-12-28 07:56 | NUR ---
SUMMARY Patient stable through night, unlabored breathing on 2L NC. Had one medium hard formed BM but reporting constipation and discomfort. Given milk of magnesia PRN. Tamez catheter patent draining to gravity. Safety precautions in place.
[2022-12-28 08:05] VITALS: BP_SYST 89
[2022-12-28] MEDS: APIXABAN 2.5 MG TABLET PO SCH (08:50)
[2022-12-28] MEDS: FERROUS SULFATE 325 MG TABLET.DR PO SCH (08:51)
[2022-12-28] MEDS: PYRIDOXINE HCL 50 MG TABLET PO SCH (08:51)
[2022-12-28] MEDS: OMEGA-3/DHA/EPA/FISH OIL 1 GM CAPSULE PO SCH (08:51)
[2022-12-28] MEDS: DULoxetine HCL 30 MG CAPSULE.DR (CYMBALTA) PO SCH (08:51)
[2022-12-28] MEDS: THIAMINE HCL 100 MG TABLET PO SCH (08:51)
[2022-12-28] MEDS: LACTOBACILLUS RHAMNOSUS GG 1 CAP CAPSULE PO SCH (08:51)
[2022-12-28] MEDS: DOCUSATE SODIUM 100 MG CAPSULE PO SCH (08:51)
[2022-12-28] MEDS: predniSONE 10 MG TABLET PO SCH (08:51)
[2022-12-28] MEDS: VITAMIN E 400 UNIT CAPSULE PO SCH (08:51)
[2022-12-28] MEDS: LORATADINE 10 MG TABLET PO SCH (08:52)
[2022-12-28] MEDS: ISOSORBIDE MONONITRATE 30 MG TAB.ER.24H PO SCH (08:52)
[2022-12-28] MEDS: INSULIN GLARGINE 100 UNITS/ML, 10 ML VIAL SUBCUT SCH (08:55)
[2022-12-28] MEDS: FLUTICASONE PROPIONATE 50 mCg/SPRAY 16 GM NS SCH (09:00)
[2022-12-28] MEDS: METOPROLOL SUCCINATE 25 MG TAB.SR.24H (TOPROL XL) PO SCH (09:00)
[2022-12-28 09:06] LABS: BASOPHILS % (AUTO) 0.3 % (0.0-2.0); EOSINOPHILS # (AUTO) 0.1 K/uL (0.0-0.4); EOSINOPHILS % (AUTO) 0.9 % (0.0-4.0); HEMATOCRIT 23.8 % (36-48); HEMOGLOBIN 7.5 g/dL (12.0-16.0); LYMPHOCYTES # (AUTO) 1.3 K/uL (1.0-5.5); LYMPHOCYTES % (AUTO) 11.5 % (20.5-51.5); MEAN CORPUSCULAR HEMOGLOBIN 29 pg (27-31); MEAN CORPUSCULAR HGB CONC 32 % (32-36); MEAN CORPUSCULAR VOLUME 91 fL (79.0-98.0); MONOCYTES # (AUTO) 0.6 K/uL (0.0-1.0); MONOCYTES % (AUTO) 5.1 % (1.7-9.3); NEUTROPHILS # (AUTO) 9.2 K/uL (1.8-7.7); NEUTROPHILS % (AUTO) 82.2 % (40.0-70.0); PLATELET COUNT (AUTO) 73 K/uL (130-430); RED BLOOD CELL COUNT(AUTO) 2.63 MIL/uL (4.2-6.2); RED CELL DISTRIBUTION WIDTH 17.5 % (9.0-15.0); WHITE BLOOD COUNT (AUTO) 11.1 K/uL (4.8-10.8)
[2022-12-28] MEDS: ACETAMINOPHEN 325 MG TABLET PO PRN (09:27)
[2022-12-28] MEDS: PRIMIDONE 50 MG TABLET PO SCH (09:29)
[2022-12-28 11:08] LABS: ANION GAP 2 (5-15); CALCIUM 8.4 mg/dL (8.4-11.0); CHLORIDE 106 mmol/L (98-107); CREATININE 0.67 mg/dL (0.55-1.30); GLUCOSE 172 mg/dL (70-99); UREA NITROGEN, BLOOD 72 mg/dL (8-21)
[2022-12-28] MEDS ORDERED: FUROSEMIDE 20 MG/2 ML VIAL IVP ONE (11:30)
[2022-12-28] MEDS ORDERED: ALBUMIN HUMAN 25% 50 ML IV ONE (11:30)
[2022-12-28] MEDS ORDERED: LACTULOSE 20 GM/30 ML UDC PO ONE (11:45)
[2022-12-28 11:47] VITALS: BP_SYST 112
--- NOTE | 2022-12-28 13:50 | NUR ---
NAUSEA Patient states nausea at this time. No nausea medications ordered at this time. Will continue to monitor and inform MD.
--- NOTE | 2022-12-28 14:05 | NUR ---
PAGED Dr. George paged re: orders. Spoke to exchange.
[2022-12-28] MEDS ORDERED: ONDANSETRON HCL 4 MG/2 ML VIAL IVP PRN (15:00)
--- NOTE | 2022-12-28 16:57 | NUR ---
RT NOTE: [employer]ER was called on patient, due to unresponsiveness and agonal breathing while on bipap. Patient was taken off BiPAP and rescue breaths was done with an ambu bag. 1705 Patient was successfully intubated by Dr Dockery in one attempt, using a mac 3 blade and 7.5 ETT secured at 23cm at the teeth. Equal chest rise was noted, CO2 detector color change noted, auscultated, and condensation at the tube with every breath.
[2022-12-28 17:31] VITALS: BP_SYST 105
--- NOTE | 2022-12-28 19:01 | NUR ---
PATIENT At appoximately 1650, patient was not responsive while on Bipap. RN and RT were at bedside. Rapid response called at 1700. Patient was intubated at approximately 1705. After intubation, no pulse was felt, and then code blue was called. 4 rounds of CPR were completed and patient was pronounced at 1724. After pronunciation, there was sporadic activity on the monitor. Pulse was felt on left carotid. One more round of CPR done. Patient was ultimately pronounced at 1731. At this time, family is at bedside. They requested that RN calls [facility] in [place]. They were called at they stated they will pick patient up soon and call [facility] unit when drivers are en route. No ETA provided. Endorsed to EUGENE Sanchez for continuity of care.
== END 2022-12-28 17:00 | DRG 193 ==
LOC: SED 17:40 → SIC 22:56 → STU 12-23 23:08
PROVIDERS: ADMIT Family Medicine; ATTEND Family Medicine
PROC: 5A09357 Assistance with Respiratory Ventilation, Less than 24 Consecutive Hours, Continuous Positive Airway Pressure (ICD-10-PCS; principal; 2022-12-09)
PROC: 5A09357 Assistance with Respiratory Ventilation, Less than 24 Consecutive Hours, Continuous Positive Airway Pressure (ICD-10-PCS; 2022-12-10)
PROC: 5A09357 Assistance with Respiratory Ventilation, Less than 24 Consecutive Hours, Continuous Positive Airway Pressure (ICD-10-PCS; 2022-12-11)
PROC: 5A09357 Assistance with Respiratory Ventilation, Less than 24 Consecutive Hours, Continuous Positive Airway Pressure (ICD-10-PCS; 2022-12-12)
PROC: 5A09357 Assistance with Respiratory Ventilation, Less than 24 Consecutive Hours, Continuous Positive Airway Pressure (ICD-10-PCS; 2022-12-13)
PROC: 5A09357 Assistance with Respiratory Ventilation, Less than 24 Consecutive Hours, Continuous Positive Airway Pressure (ICD-10-PCS; 2022-12-14)
PROC: 5A09357 Assistance with Respiratory Ventilation, Less than 24 Consecutive Hours, Continuous Positive Airway Pressure (ICD-10-PCS; 2022-12-15)
PROC: 5A09357 Assistance with Respiratory Ventilation, Less than 24 Consecutive Hours, Continuous Positive Airway Pressure (ICD-10-PCS; 2022-12-16)
PROC: 5A09357 Assistance with Respiratory Ventilation, Less than 24 Consecutive Hours, Continuous Positive Airway Pressure (ICD-10-PCS; 2022-12-17)
PROC: 5A0935A Assistance with Respiratory Ventilation, Less than 24 Consecutive Hours, High Flow/Velocity Cannula (ICD-10-PCS; 2022-12-17)
PROC: 5A09357 Assistance with Respiratory Ventilation, Less than 24 Consecutive Hours, Continuous Positive Airway Pressure (ICD-10-PCS; 2022-12-18)
PROC: 5A09357 Assistance with Respiratory Ventilation, Less than 24 Consecutive Hours, Continuous Positive Airway Pressure (ICD-10-PCS; 2022-12-19)
PROC: 5A09357 Assistance with Respiratory Ventilation, Less than 24 Consecutive Hours, Continuous Positive Airway Pressure (ICD-10-PCS; 2022-12-20)
PROC: 5A09357 Assistance with Respiratory Ventilation, Less than 24 Consecutive Hours, Continuous Positive Airway Pressure (ICD-10-PCS; 2022-12-21)
PROC: 5A09357 Assistance with Respiratory Ventilation, Less than 24 Consecutive Hours, Continuous Positive Airway Pressure (ICD-10-PCS; 2022-12-22)
PROC: 05HY33Z Insertion of Infusion Device into Upper Vein, Percutaneous Approach (ICD-10-PCS; 2022-12-22)
PROC: 5A09357 Assistance with Respiratory Ventilation, Less than 24 Consecutive Hours, Continuous Positive Airway Pressure (ICD-10-PCS; 2022-12-23)
PROC: 5A09357 Assistance with Respiratory Ventilation, Less than 24 Consecutive Hours, Continuous Positive Airway Pressure (ICD-10-PCS; 2022-12-24)
PROC: 5A09357 Assistance with Respiratory Ventilation, Less than 24 Consecutive Hours, Continuous Positive Airway Pressure (ICD-10-PCS; 2022-12-25)
PROC: 5A09357 Assistance with Respiratory Ventilation, Less than 24 Consecutive Hours, Continuous Positive Airway Pressure (ICD-10-PCS; 2022-12-26)
PROC: 5A09357 Assistance with Respiratory Ventilation, Less than 24 Consecutive Hours, Continuous Positive Airway Pressure (ICD-10-PCS; 2022-12-27)
PROC: 5A09357 Assistance with Respiratory Ventilation, Less than 24 Consecutive Hours, Continuous Positive Airway Pressure (ICD-10-PCS; 2022-12-28)
PROC: 0BH17EZ Insertion of Endotracheal Airway into Trachea, Via Natural or Artificial Opening (ICD-10-PCS; 2022-12-28)
DX: J18.9 Pneumonia, unspecified organism (principal); I50.31 Acute diastolic (congestive) heart failure; J96.21 Acute and chronic respiratory failure with hypoxia; R65.11 Systemic inflammatory response syndrome (SIRS) of non-infectious origin with acute organ dysfunction; J96.22 Acute and chronic respiratory failure with hypercapnia; I48.20 Chronic atrial fibrillation, unspecified; N17.9 Acute kidney failure, unspecified; I13.0 Hypertensive heart and chronic kidney disease with heart failure and stage 1 through stage 4 chronic kidney disease, or unspecified chronic kidney disease; N39.0 Urinary tract infection, site not specified; E66.2 Morbid (severe) obesity with alveolar hypoventilation; E87.29 Other acidosis; J44.0 Chronic obstructive pulmonary disease with (acute) lower respiratory infection; I46.9 Cardiac arrest, cause unspecified; Z20.822 Contact with and (suspected) exposure to COVID-19; F02.80 Dementia in other diseases classified elsewhere, unspecified severity, without behavioral disturbance, psychotic disturbance, mood disturbance, and anxiety; N18.9 Chronic kidney disease, unspecified; E11.22 Type 2 diabetes mellitus with diabetic chronic kidney disease; I87.2 Venous insufficiency (chronic) (peripheral); D64.9 Anemia, unspecified; D69.6 Thrombocytopenia, unspecified; G20 Parkinson's disease; E78.5 Hyperlipidemia, unspecified; Z88.5 Allergy status to narcotic agent; Z79.1 Long term (current) use of non-steroidal anti-inflammatories (NSAID); Z79.899 Other long term (current) drug therapy; Z68.38 Body mass index [BMI] 38.0-38.9, adult; Z95.1 Presence of aortocoronary bypass graft; Z79.4 Long term (current) use of insulin; Z87.891 Personal history of nicotine dependence; Z87.01 Personal history of pneumonia (recurrent); Z86.16 Personal history of COVID-19
CPT/HCPCS: 36415; 36600; 71045; 71250-TC; 76376; 76700-TC; 80048; 80053; 80074; 80076; 80162; 81000; 82390; 82550; 82728; 82803-TC; 82962; 82977; 83516; 83540; 83550; 83605; 83735; 83880; 84484; 85007; 85025; 85027; 85379; 85384; 85610-TC; 85730-TC; 86038; 86140; 86713; 86738; 87040; 87081; 87086; 93005; 93306; 94640; 94660; 94760; 96361; 96365; 96367; 96375; 96376; 97110-GP; 97112-GP; 97530-GP; 99291; G0378; J0171; J0330; J0456; J0692; J0696; J1030; J1160; J1450; J1815; J1940; J2543; J3490; J7050; J7060; J7509; J7512; J7612; P9046